=== PATIENT | female | born 1970 | race Caucasian/White ===

== ENCOUNTER 2016-12-12 05:28 | Emergency (ER) | payer OTHER ==
[~2016-12-12] VITALS: Ht 152.4 cm; Wt 88.9 kg
[~2016-12-12 05:28] MED LIST: ADIPEX-P37.5 M1 PO; AMBIEN 10MG10 MG PO; AMITIZA 8MCG8 MCG PO; AMITRIPTYLINE H25 M1 PO; ATARAX 10MG10 MG/TAB PO; ATIVAN 0.50.5 MG/TAB PO; B COMPLEX & B121 TAB PO; BACTRIM DS 8001 TAB PO; CALTRATE-600 W600 MG PO; CARAFATE S1 GM/10 ML PO; CELEBREX 1100 MG/CAP PO; CELEXA; CEPHALEXIN500 M1 PO; COLACE 100100 MG/CAP PO; CYMBALTA 60MG60 MG PO; DESYREL 100MG100 MG PO; DULCOLAX S10 MG/SUPP RC; ENULOSE10 GM/15 M PO; EXALGO16 MG PO; FIORICET 325 MG1 TA1 PO; FLEXERIL 1010 MG/TAB PO; FLEXERIL10 MG PO; GENTLE LAXATIVE5 MG PO; GINGER ROOT550 MG PO; IMITREX 25MG TA25 MG PO; IMITREX100 MG PO; INDERAL LA 80MG80 MG PO; IRON TABLETS325 MG PO; IRON325 MG PO; KEFLEX750 MG PO; KLONOPIN 0.5MG0.5 MG PO; KLONOPIN 1MG1 MG PO; LAMICTAL 100MG100 MG PO; LAMICTAL 25MG T25 MG PO; LEVAQUIN 5500 MG/TA1 PO; LEXAPRO20 MG PO; LIDOCAINE HC20 MG/M1 MM; LIDOCAINE HCL100 M1 MM; LIDOCAINE PO; LINZESS145CAP; LINZESS290CAP; LINZESS290CAP PO; LIPITOR20 MG PO; LORTAB 5/500 501 TAB PO; MIRALAX PA17 GM/Dose PO; MIRAPEX 1MG PO; MS CONTIN 115 MG/TAB PO; MS CONTIN 330 MG/TAB PO; MULTI VITAMINS1 TAB PO; MULTIPLE VITAMI1 CAP PO; MYRBETR25MG PO; NEXIUM 40MG40 MG PO; NEXIUM PO; NIFEREX-150 501 CA1 PO; NORCO 325 MG-51 TAB; NORCO 325 MG-51 TAB PO; NYSTATIN 5500 MU/TAB PO; NYSTATIN OR100 MU/ML PO; OYSTER CALCIUM500 M1 PO; PAMELOR 25MG25 MG PO; PERCOCET 325 MG1 TA2 PO; PHENERGAN 25 TA25 MG PO; PHENERGAN12.5 MG/SU RC; PHENERGAN25 MG RC; PREDNISONE20 MG PO; PREMARIN .3MG0.3 MG PO; PRILOTC PO; PRINZIDE 12.5 M1 TAB PO; PYRIDIUM200 M1 PO; Pyridium PO; REGLAN 10M10 MG/2 ML; REGLAN 10MG10 MG/TAB PO; REGLAN5 MG PO; REMERON30 MG PO; REQUIP 1MG T1 MG/TAB PO; RESTORIL30 MG PO; ROXICODONE 55 MG/TAB PO; ROXICODONE15 MG PO; SEA SOFT MIST 445 ML NS; SENNA8.6 MG PO; SEROQUEL 1100 MG/TAB PO; SEROQUEL 2525 MG/TAB; SEROQUEL 2525 MG/TAB PO; SEROQUEL50 MG PO; SINGULAIR 110 MG/TAB PO; TEARS NATURALE15 M1 OP; ULTRAM 50MG TAB50 MG PO; UNABLE; VESICARE 5MG5 MG PO; VRAYLAR1.5 MG PO; WELLBUTRIN SR150 M1 PO; ZESTRIL 10MG10 MG PO; ZOFRAN 4MG T4 MG/TAB PO; ZOFRAN ODT4 MG PO
[2016-12-12 05:30] VITALS: BP 111/77; TEMP 97.8
[2016-12-12] MEDS ORDERED: TYLENOL W/COD1 UDTAB PO (07:08)
[2016-12-12] MEDS ORDERED: FLEXERIL 1010 MG/TAB PO (07:08)
[2016-12-12] MEDS ORDERED: PREDNISONE20 MG PO (07:08)
[2016-12-12 07:23] VITALS: PULSE 67
== END 2016-12-12 07:21 | disposition home or self-care (01) ==
LOC: COL.ER 05:28
DX: S39.012A Strain of muscle, fascia and tendon of lower back, initial encounter (principal); I10 Essential (primary) hypertension; X50.0XXA Overexertion from strenuous movement or load, initial encounter; G43.909 Migraine, unspecified, not intractable, without status migrainosus
CPT/HCPCS: J3010; J7512

== ENCOUNTER → 2016-12-21 | Outpatient (CLI) | payer OTHER ==
[~2016-12-21] MED LIST changes: +NEURONTIN300 MG/CAP PO; +TYLENOL W/COD1 UDTAB PO
== END ==
LOC: MC.RAD 11:33
DX: Z12.31 Encounter for screening mammogram for malignant neoplasm of breast (principal)

== ENCOUNTER → 2017-01-06 | Outpatient (CLI) | payer OTHER | LOC: BHSO 14:01 | DX: F31.73 Bipolar disorder, in partial remission, most recent episode manic (principal) ==

== ENCOUNTER → 2017-03-10 | Outpatient (CLI) | payer OTHER | LOC: BHSO 13:39 | DX: F31.73 Bipolar disorder, in partial remission, most recent episode manic (principal) ==

== ENCOUNTER 2017-03-26 01:58 | Inpatient (IN) | payer OTHER ==
[~2017-03-26] VITALS: Ht 152.4 cm; Wt 93.1 kg
[~2017-03-26 01:58] MED LIST changes: -NEURONTIN300 MG/CAP PO
[2017-03-26 02:29] LABS: BASO % 0.3 % (0.0-2.0); EOS # 0.2 (0.0-0.7); EOS % 1.2 % (0-4.0); GRAN # 11.6 (1.4-6.5); GRAN % 77.8 % (42.2-75.2); HEMATOCRIT 36.3 % (37.0-47.0); HEMOGLOBIN 11.8 g/dl (12.5-16.0); LYMPH % 13.3 % (20.0-51.0); MEAN CELL VOLUME 81 fl (80.0-100.0); MEAN CORPUSCULAR HEMOGLOBIN 26 pg (27.0-31.0); MEAN CORPUSCULAR HGB CONC 33 g/dl (33.0-37.0); MEAN PLATELET VOLUME 10.9 fl (7.4-10.4); PLATELET COUNT 305 K/mm3 (130-400); RED BLOOD COUNT 4.48 M/mm3 (4.10-5.30); REDCELL DISTRIBUTION WIDTH-CV 13.9 % (11.5-14.5); WHITE BLOOD COUNT 14.9 K/mm3 (4.8-10.8)
[2017-03-26 02:39] LABS: ADJUSTED CALCIUM 9.1 mg/dL (8.4-10.2); ALBUMIN 4.3 gm/dL (3.5-5.0); BILIRUBIN,TOTAL 0.5 mg/dL (0.0-1.0); CALCIUM 9.3 mg/dL (8.4-10.2); CREATININE, serum 0.81 mg/dL (0.52-1.25); POTASSIUM 3.9 mmol/L (3.4-5.0); TOTAL PROTEIN 7.4 gm/dL (6.4-8.2)
[2017-03-26] MEDS ORDERED: NEURONTIN300 MG/CAP PO (03:43)
[2017-03-26 04:10] LABS: PH 5 (5-8); SQUAMOUS EPITHELIAL 0-2 /hpf; URINE APPEARANCE Clear; URINE BACTERIA None Seen /hpf; URINE BILIRUBIN Negative (NEGATIVE); URINE BLOOD Negative (NEGATIVE); URINE COLOR Yellow; URINE GLUCOSE Negative (NEGATIVE); URINE KETONE Negative (NEGATIVE); URINE RBC 0-2 /hpf; URINE UROBILINOGEN Negative (NEGATIVE); URINE WBC None Seen /hpf
[2017-03-26 04:11] VITALS: BP 113/65; PULSE 87; TEMP 98.8
[2017-03-26 10:55] VITALS: BP 121/71; PULSE 81; TEMP 98.1
[2017-03-26 11:44] LABS: BASO % 0.3 % (0.0-2.0); EOS # 0.2 (0.0-0.7); EOS % 1.7 % (0-4.0); GRAN # 6.1 (1.4-6.5); GRAN % 65.1 % (42.2-75.2); LYMPH # 2.1 (1.2-3.4); LYMPH % 22.3 % (20.0-51.0); MEAN CELL VOLUME 83 fl (80.0-100.0); MEAN CORPUSCULAR HGB CONC 32 g/dl (33.0-37.0); MEAN PLATELET VOLUME 11.1 fl (7.4-10.4); MONO % 10.3 % (1.7-9.3); PLATELET COUNT 279 K/mm3 (130-400); RED BLOOD COUNT 3.88 M/mm3 (4.10-5.30); REDCELL DISTRIBUTION WIDTH-CV 13.9 % (11.5-14.5); WHITE BLOOD COUNT 9.4 K/mm3 (4.8-10.8)
[2017-03-26 11:45] LABS: HEMOGLOBIN 10.3 g/dl (12.5-16.0); MEAN CORPUSCULAR HEMOGLOBIN 27 pg (27.0-31.0)
[2017-03-26 14:50] VITALS: BP 111/64; PULSE 79; TEMP 97.7
[2017-03-26 18:13] VITALS: BP 121/68; PULSE 75; TEMP 97.7
[2017-03-26 21:45] VITALS: BP 11/70; BP 111/70; PULSE 73; TEMP 97.7
[2017-03-27] VITALS (11 sets, daily range): BP systolic 121–143; BP diastolic 55–80; PULSE 61–93; TEMP 97–98.1
[2017-03-27 08:19] LABS: BASO % 0.2 % (0.0-2.0); EOS # 0.2 (0.0-0.7); EOS % 2.9 % (0-4.0); GRAN # 3.7 (1.4-6.5); GRAN % 56.7 % (42.2-75.2); HEMATOCRIT 32.8 % (37.0-47.0); HEMOGLOBIN 10.4 g/dl (12.5-16.0); LYMPH # 1.9 (1.2-3.4); LYMPH % 29.8 % (20.0-51.0); MEAN CELL VOLUME 83 fl (80.0-100.0); MEAN CORPUSCULAR HEMOGLOBIN 26 pg (27.0-31.0); MEAN CORPUSCULAR HGB CONC 32 g/dl (33.0-37.0); MEAN PLATELET VOLUME 11.8 fl (7.4-10.4); MONO # 0.7 (0.1-0.6); MONO % 10.1 % (1.7-9.3); PLATELET COUNT 187 K/mm3 (130-400); RED BLOOD COUNT 3.95 M/mm3 (4.10-5.30); REDCELL DISTRIBUTION WIDTH-CV 13.8 % (11.5-14.5); WHITE BLOOD COUNT 6.5 K/mm3 (4.8-10.8)
[2017-03-27 08:31] LABS: ALBUMIN 3.5 gm/dL (3.5-5.0); BILIRUBIN,TOTAL 0.7 mg/dL (0.0-1.0); CALCIUM 8.6 mg/dL (8.4-10.2); CREATININE, serum 0.52 mg/dL (0.52-1.25); POTASSIUM 3.7 mmol/L (3.4-5.0); TOTAL PROTEIN 6.3 gm/dL (6.4-8.2)
[2017-03-28 06:21] VITALS: BP 133/73; PULSE 69; TEMP 97.7
[2017-03-28 09:33] VITALS: BP 126/77; PULSE 73; TEMP 97.9
[2017-03-28 13:45] VITALS: BP 121/72; PULSE 65; TEMP 98.3
[2017-03-28 17:28] VITALS: BP 106/60; PULSE 65; TEMP 97.9
[2017-03-28 22:04] VITALS: BP 84/49; PULSE 63; TEMP 97.6
[2017-03-29 00:03] VITALS: BP 95/56; PULSE 65; TEMP 97.7
[2017-03-29 06:05] VITALS: BP 91/53; PULSE 60; TEMP 97.6
[2017-03-29 09:24] VITALS: BP 101/56; PULSE 72; TEMP 97.6
[2017-03-29] MEDS ORDERED: PERCOCET 325 MG1 TA2 PO (10:53)
[2017-03-29] MEDS ORDERED: COLACE 100100 MG/CAP PO (10:54)
[2017-03-29 13:24] VITALS: BP 104/62; PULSE 72; TEMP 97.7
== END 2017-03-29 16:30 | disposition home or self-care (01) | DRG 337 ==
LOC: COL.ER 01:58 → SURG 03:23
PROVIDERS: Emergency Medicine; Surgery
PROC: 0DNV4ZZ Release Mesentery, Percutaneous Endoscopic Approach (ICD-10-PCS; principal; 2017-03-27 09:00)
DX: K56.5 Intestinal adhesions [bands] with obstruction (postinfection) (principal); I10 Essential (primary) hypertension; Z98.84 Bariatric surgery status; E11.9 Type 2 diabetes mellitus without complications
CPT/HCPCS: A9284; J0330; J1100; J1170; J2270; J2405; J2704; J2710; J2765; J3010; J7030; Q9967

== ENCOUNTER → 2017-07-06 | Outpatient (CLI) | payer OTHER ==
[~2017-07-06] MED LIST changes: +NEURONTIN300 MG/CAP PO
== END ==
LOC: BHSO 14:00
DX: F31.73 Bipolar disorder, in partial remission, most recent episode manic (principal)

== ENCOUNTER → 2017-10-06 | Outpatient (CLI) | payer OTHER ==
[~2017-10-06] MED LIST changes: +GLUCOPHAGE1000 MG PO
== END ==
LOC: BHSO 14:01
DX: F31.73 Bipolar disorder, in partial remission, most recent episode manic (principal)
CPT/HCPCS: G0463

== ENCOUNTER 2017-10-08 22:28 | Inpatient (IN) | payer OTHER ==
[~2017-10-08] VITALS: Ht 152.4 cm; Wt 89.0 kg
[~2017-10-08 22:28] MED LIST changes: -GLUCOPHAGE1000 MG PO
[2017-10-08] MEDS ORDERED: GLUCOPHAGE1000 MG PO (22:50)
[2017-10-08] MEDS ORDERED: MIRALAX PA17 GM/Dose PO (22:51)
[2017-10-08 23:09] LABS: BASO # 0.1 (0.0-0.2); BASO % 0.5 % (0.0-2.0); EOS # 0.1 (0.0-0.7); EOS % 0.6 % (0-4.0); GRAN # 11.8 (1.4-6.5); GRAN % 88.9 % (42.2-75.2); HEMATOCRIT 40.5 % (37.0-47.0); HEMOGLOBIN 13.3 g/dl (12.5-16.0); LYMPH # 0.7 (1.2-3.4); MEAN CELL VOLUME 84 fl (80.0-100.0); MEAN CORPUSCULAR HEMOGLOBIN 27 pg (27.0-31.0); MEAN CORPUSCULAR HGB CONC 33 g/dl (33.0-37.0); MEAN PLATELET VOLUME 10.4 fl (7.4-10.4); MONO # 0.6 (0.1-0.6); MONO % 4.6 % (1.7-9.3); PLATELET COUNT 266 K/mm3 (130-400); RED BLOOD COUNT 4.85 M/mm3 (4.10-5.30); REDCELL DISTRIBUTION WIDTH-CV 13.7 % (11.5-14.5)
[2017-10-08 23:20] LABS: ALBUMIN 4.3 gm/dL (3.5-5.0); BILIRUBIN,TOTAL 0.4 mg/dL (0.0-1.0); CREATININE, serum 0.99 mg/dL (0.52-1.25); POTASSIUM 4.1 mmol/L (3.4-5.0); TOTAL PROTEIN 7.3 gm/dL (6.4-8.2)
[2017-10-09] VITALS (578 sets, daily range): BP systolic 94–118; BP diastolic 62–76; PULSE 99–135; TEMP 98–98.5; O2SAT 88–100
[2017-10-09 00:51] LABS: COLLECTION METHOD CLEAN CATCH
[2017-10-09 00:58] LABS: MUCOUS Present /lpf; PH 5 (5-8); SQUAMOUS EPITHELIAL 0-2 /hpf; URINE APPEARANCE Clear; URINE BACTERIA None Seen /hpf; URINE BILIRUBIN Negative (NEGATIVE); URINE BLOOD Negative (NEGATIVE); URINE COLOR Yellow; URINE GLUCOSE Negative (NEGATIVE); URINE KETONE Negative (NEGATIVE); URINE LEUKOCYTE ESTERASE Negative (NEGATIVE); URINE NITRATE Negative (NEGATIVE); URINE PROTEIN(semi-quant) Negative (NEGATIVE); URINE RBC 0-2 /hpf; URINE UROBILINOGEN Negative (NEGATIVE)
[2017-10-09 06:05] LABS: C-REACTIVE PROTEIN 3.5 mg/dL (0.0-0.9)
[2017-10-09 06:33] LABS: THYROID STIMULATING HORMONE 0.437 uIU/mL (0.465-4.680)
[2017-10-10] VITALS (482 sets, daily range): BP systolic 99–131; BP diastolic 67–93; PULSE 79–100; TEMP 97–98.8; O2SAT 84–100
[2017-10-10 06:15] LABS: MEAN CELL VOLUME 84 fl (80.0-100.0); MEAN CORPUSCULAR HGB CONC 33 g/dl (33.0-37.0); PLATELET COUNT 207 K/mm3 (130-400); REDCELL DISTRIBUTION WIDTH-CV 14.2 % (11.5-14.5)
[2017-10-10 06:21] LABS: HEMATOCRIT 33.6 % (37.0-47.0); MEAN CORPUSCULAR HEMOGLOBIN 28 pg (27.0-31.0)
[2017-10-10 06:33] LABS: CALCIUM 8.4 mg/dL (8.4-10.2); CREATININE, serum 0.6 mg/dL (0.52-1.25); POTASSIUM 3.2 mmol/L (3.4-5.0)
[2017-10-11] VITALS: BP 112/59; PULSE 79; TEMP 98.6
[2017-10-11 04:00] VITALS: BP 101/58; PULSE 81; TEMP 98.1
[2017-10-11 09:21] VITALS: BP 99/64; PULSE 94; TEMP 98.4
[2017-10-11 12:27] VITALS: BP 82/58; PULSE 91; TEMP 97.9
[2017-10-11 12:48] VITALS: BP 93/58
== END 2017-10-11 16:50 | disposition home or self-care (01) | DRG 390 ==
LOC: COL.ER 22:28 → SURG 10-09 00:36 → ICU 10-09 04:42 → SURG 10-09 08:35 → ICU 10-09 08:51 → SURG 10-10 15:00
PROVIDERS: Emergency Medicine; Surgery
DX: K56.600 Partial intestinal obstruction, unspecified as to cause (principal); A08.4 Viral intestinal infection, unspecified; Z98.84 Bariatric surgery status; I10 Essential (primary) hypertension; E11.9 Type 2 diabetes mellitus without complications; G89.29 Other chronic pain; E87.6 Hypokalemia; E86.9 Volume depletion, unspecified; E05.90 Thyrotoxicosis, unspecified without thyrotoxic crisis or storm
CPT/HCPCS: 99221; 99232-AI; C9113; J1170; J1650; J1815; J2405; J3480; J7030; J7050; J7070; J7120; Q9967

== ENCOUNTER → 2018-01-26 | Outpatient (CLI) | payer OTHER ==
[~2018-01-26] MED LIST changes: +GLUCOPHAGE1000 MG PO
== END ==
LOC: BHSO 13:56
DX: F33.41 Major depressive disorder, recurrent, in partial remission (principal)
CPT/HCPCS: G0463

== ENCOUNTER → 2018-03-06 | Outpatient (CLI) | payer OTHER | LOC: BHSO 13:42 | DX: F33.41 Major depressive disorder, recurrent, in partial remission (principal) | CPT/HCPCS: G0463 ==

== ENCOUNTER 2018-04-17 13:43 | Day surgery (SDC) | payer OTHER ==
[~2018-04-17] VITALS: Ht 152.4 cm; Wt 76.9 kg
[~2018-04-17 13:43] MED LIST changes: -LAMICTAL 25MG T25 MG PO; +LAMICTAL150 MG PO; +SEROQUEL300 MG PO
[2018-04-17] MEDS ORDERED: JANUVIA 100MG100 MG PO (14:06)
[2018-04-17] MEDS ORDERED: CYMBALTA 30MG30 MG PO (14:09)
[2018-04-17] MEDS ORDERED: CONTRAVE1 TER PO (14:09)
[2018-04-17] MEDS ORDERED: EPA FISH OIL1 SGL PO (14:10)
[2018-04-17] MEDS ORDERED: LIPITOR 10MG10 MG PO (14:10)
[2018-04-17] MEDS ORDERED: CALCIUM CARBON650 M2 PO (14:11)
[2018-04-17 14:29] VITALS: BP 127/96; PULSE 75; TEMP 97.5
[2018-04-17 15:30] VITALS: BP 122/81; PULSE 70; TEMP 97.9
[2018-04-17 15:45] VITALS: BP 135/80; PULSE 72
== END 2018-04-17 16:10 | disposition home or self-care (01) ==
LOC: SDCO 13:43
DX: R11.2 Nausea with vomiting, unspecified (principal); K31.89 Other diseases of stomach and duodenum; D64.9 Anemia, unspecified; F32.9 Major depressive disorder, single episode, unspecified; F41.9 Anxiety disorder, unspecified; K59.00 Constipation, unspecified; E11.9 Type 2 diabetes mellitus without complications; E78.00 Pure hypercholesterolemia, unspecified; I10 Essential (primary) hypertension; D50.9 Iron deficiency anemia, unspecified; Z90.710 Acquired absence of both cervix and uterus; Z90.49 Acquired absence of other specified parts of digestive tract
CPT/HCPCS: J2250; J2405; J3010; J7030

== ENCOUNTER → 2018-05-16 | Outpatient (CLI) | payer OTHER ==
[~2018-05-16] MED LIST changes: +CALCIUM CARBON650 M2 PO; +CONTRAVE1 TER PO; +CYMBALTA 30MG30 MG PO; +EPA FISH OIL1 SGL PO; +JANUVIA 100MG100 MG PO; +LIPITOR 10MG10 MG PO
== END ==
LOC: MC.RAD 05-15 14:40
DX: Z12.31 Encounter for screening mammogram for malignant neoplasm of breast (principal)

== ENCOUNTER → 2018-06-05 | Outpatient (CLI) | payer OTHER | LOC: BHSO 12:58 | DX: F41.1 Generalized anxiety disorder (principal) | CPT/HCPCS: G0463 ==

== ENCOUNTER → 2018-10-23 | Outpatient (CLI) | payer OTHER | LOC: BHSO 14:25 | DX: F33.0 Major depressive disorder, recurrent, mild (principal) | CPT/HCPCS: G0463 ==

== ENCOUNTER 2018-11-05 23:17 | Emergency (ER) | payer OTHER ==
[~2018-11-05] VITALS: Ht 149.9 cm; Wt 66.4 kg
[2018-11-05 23:24] VITALS: TEMP 97.9
[2018-11-05 23:46] LABS: BASO # 0.1 (0.0-0.2); BASO % 0.7 % (0.0-2.0); EOS # 0.3 (0.0-0.7); EOS % 3.8 % (0-4.0); GRAN # 3.2 (1.4-6.5); HEMOGLOBIN 11.5 g/dl (12.5-16.0); LYMPH # 3.9 (1.2-3.4); MEAN CELL VOLUME 87 fl (80.0-100.0); MEAN CORPUSCULAR HEMOGLOBIN 28 pg (27.0-31.0); MEAN CORPUSCULAR HGB CONC 32 g/dl (33.0-37.0); MEAN PLATELET VOLUME 10.2 fl (7.4-10.4); MONO # 0.7 (0.1-0.6); MONO % 8.4 % (1.7-9.3); PLATELET COUNT 291 K/mm3 (130-400); RED BLOOD COUNT 4.08 M/mm3 (4.10-5.30); REDCELL DISTRIBUTION WIDTH-CV 13.4 % (11.5-14.5)
[2018-11-05 23:50] LABS: HEMATOCRIT 35.5 % (37.0-47.0)
[2018-11-05] MEDS ORDERED: DESYREL 100MG100 MG PO (23:52)
[2018-11-06] LABS: ALANINE AMINOTRANSFERASE 26 U/L (9-52); ALKALINE PHOSPHATASE 73 U/L (50-136); ANION GAP 6 mmol/L (7-16); AST,SGOT 35 U/L (15-37); BILIRUBIN,TOTAL 0.2 mg/dL (0.0-1.0); BLOOD UREA NITROGEN 14 mg/dL (7-17); CALCIUM 9.2 mg/dL (8.4-10.2); CARBON DIOXIDE 27 mmol/L (22-30); CHLORIDE 105 mmol/L (98-107); CREATININE, serum 0.83 mg/dL (0.52-1.25); LIPASE 167 U/L (23-300); POTASSIUM 3.7 mmol/L (3.4-5.0); SODIUM 139 mmol/L (137-145); TOTAL PROTEIN 7.1 gm/dL (6.4-8.2)
[2018-11-06 00:06] LABS: PROTHROMBIN TIME 10.8 SECONDS (9.7-12.8)
[2018-11-06 00:07] LABS: GLUCOSE 36 mg/dL (74-106)
[2018-11-06 00:11] LABS: TROPONIN-I < 0.012 ng/mL (0.000-0.035)
[2018-11-06 00:16] LABS: D-DIMER < 200.00 ng/mLDDu (200-230)
[2018-11-06 00:56] LABS: CALCIUM 8.5 mg/dL (8.4-10.2); CREATININE, serum 0.76 mg/dL (0.52-1.25); POTASSIUM 3.9 mmol/L (3.4-5.0)
[2018-11-06 01:55] LABS: COLLECTION METHOD CLEAN CATCH
[2018-11-06 02:07] LABS: PH 6 (5-8); SQUAMOUS EPITHELIAL 0-2 /hpf; URINE APPEARANCE Clear; URINE BACTERIA None Seen /hpf; URINE BILIRUBIN Negative (NEGATIVE); URINE BLOOD Negative (NEGATIVE); URINE COLOR Straw; URINE GLUCOSE 1+ (NEGATIVE); URINE KETONE Negative (NEGATIVE); URINE LEUKOCYTE ESTERASE Negative (NEGATIVE); URINE NITRATE Negative (NEGATIVE); URINE PROTEIN(semi-quant) Negative (NEGATIVE); URINE RBC None Seen /hpf; URINE UROBILINOGEN Negative (NEGATIVE)
[2018-11-06 02:50] LABS: ANION GAP 4 mmol/L (7-16); BLOOD UREA NITROGEN 13 mg/dL (7-17); CALCIUM 8.6 mg/dL (8.4-10.2); CARBON DIOXIDE 28 mmol/L (22-30); CHLORIDE 109 mmol/L (98-107); CREATININE, serum 0.76 mg/dL (0.52-1.25); GLUCOSE 118 mg/dL (74-106); POTASSIUM 4.4 mmol/L (3.4-5.0); SODIUM 140 mmol/L (137-145)
[2018-11-06 03:02] LABS: TROPONIN-I 3 HR POST INITIAL < 0.012 ng/mL (0.000-0.034)
[2018-11-06 03:09] VITALS: BP 98/72; PULSE 67
== END 2018-11-06 03:20 | disposition home or self-care (01) ==
LOC: COL.ER 23:17
PROVIDERS: Emergency Medicine
DX: R07.89 Other chest pain (principal); I10 Essential (primary) hypertension; Z98.890 Other specified postprocedural states
CPT/HCPCS: J1170; J1630; J2270; J2405; J7030

== ENCOUNTER 2018-11-29 15:02 | Emergency (ER) | payer OTHER ==
[~2018-11-29] VITALS: Ht 149.9 cm; Wt 68.2 kg
[2018-11-29 15:05] VITALS: BP 144/70; PULSE 98; TEMP 97.9
[2018-11-29] MEDS ORDERED: ACIPHEX20 MG PO (15:19)
== END 2018-11-29 16:00 | disposition home or self-care (01) ==
LOC: COL.ER 15:02
DX: M25.562 Pain in left knee (principal); F32.9 Major depressive disorder, single episode, unspecified; Z98.84 Bariatric surgery status; Z90.710 Acquired absence of both cervix and uterus
CPT/HCPCS: L1846

== ENCOUNTER → 2018-12-20 | Outpatient (CLI) | payer OTHER ==
[~2018-12-20] MED LIST changes: +ACIPHEX20 MG PO
== END ==
LOC: BHSO 13:40
DX: F33.42 Major depressive disorder, recurrent, in full remission (principal)
CPT/HCPCS: G0463

== ENCOUNTER → 2019-03-15 | Outpatient (CLI) | payer OTHER | LOC: BHSO 13:52 | DX: F33.41 Major depressive disorder, recurrent, in partial remission (principal) | CPT/HCPCS: G0463 ==

== ENCOUNTER → 2019-05-09 | Outpatient (CLI) | payer OTHER | LOC: BHSO 09:18 | DX: F33.41 Major depressive disorder, recurrent, in partial remission (principal) | CPT/HCPCS: G0463 ==

== ENCOUNTER 2019-05-16 14:21 | Emergency (ER) | payer OTHER ==
[~2019-05-16] VITALS: Ht 149.9 cm; Wt 68.2 kg
[2019-05-16 14:35] VITALS: TEMP 98
[2019-05-16 16:41] LABS: COLLECTION METHOD CLEAN CATCH
[2019-05-16 16:51] LABS: BASO % 0.5 % (0.0-2.0); EOS # 0.2 (0.0-0.7); EOS % 2.9 % (0-4.0); GRAN # 4.1 (1.4-6.5); GRAN % 49.8 % (42.2-75.2); HEMOGLOBIN 11.7 g/dl (12.5-16.0); LYMPH # 3.1 (1.2-3.4); MEAN CELL VOLUME 85 fl (80.0-100.0); MEAN CORPUSCULAR HEMOGLOBIN 28 pg (27.0-31.0); MEAN CORPUSCULAR HGB CONC 33 g/dl (33.0-37.0); MEAN PLATELET VOLUME 10.5 fl (7.4-10.4); MONO # 0.7 (0.1-0.6); MONO % 8.4 % (1.7-9.3); PLATELET COUNT 313 K/mm3 (130-400); RED BLOOD COUNT 4.23 M/mm3 (4.10-5.30); REDCELL DISTRIBUTION WIDTH-CV 13.6 % (11.5-14.5)
[2019-05-16 16:57] LABS: ALANINE AMINOTRANSFERASE 24 U/L (9-52); ALBUMIN 4.3 gm/dL (3.5-5.0); ALKALINE PHOSPHATASE 113 U/L (50-136); AMORPHOUS CRYSTAL Present /uL; ANION GAP 7 mmol/L (7-16); AST,SGOT 32 U/L (15-37); BILIRUBIN,TOTAL 0.5 mg/dL (0.0-1.0); BLOOD UREA NITROGEN 13 mg/dL (7-17); CALCIUM 9.4 mg/dL (8.4-10.2); CARBON DIOXIDE 27 mmol/L (22-30); CHLORIDE 104 mmol/L (98-107); CREATININE, serum 0.78 (0.52-1.25); GLUCOSE 102 mg/dL (74-106); LIPASE 131 U/L (23-300); MUCOUS Present /lpf; PH 7 (5-8); POTASSIUM 4.1 mmol/L (3.4-5.0); SODIUM 139 mmol/L (137-145); SQUAMOUS EPITHELIAL 0-2 /hpf; TOTAL PROTEIN 7.5 gm/dL (6.4-8.2); URINE APPEARANCE Cloudy; URINE BACTERIA None Seen /hpf; URINE BILIRUBIN Negative (NEGATIVE); URINE BLOOD Negative (NEGATIVE); URINE COLOR Yellow; URINE GLUCOSE Negative (NEGATIVE); URINE KETONE Negative (NEGATIVE); URINE LEUKOCYTE ESTERASE Negative (NEGATIVE); URINE NITRATE Negative (NEGATIVE); URINE PROTEIN(semi-quant) Negative (NEGATIVE)
[2019-05-16 17:06] LABS: HEMATOCRIT 35.8 % (37.0-47.0)
[2019-05-16 17:07] LABS: C-REACTIVE PROTEIN < 0.5 mg/dL (0.0-0.9)
[2019-05-16] MEDS ORDERED: OSCAL 500 TAB500 MG PO (17:58)
[2019-05-16] MEDS ORDERED: CYMBALTA 60MG60 MG PO (17:59)
[2019-05-16] MEDS ORDERED: TOPAMAX50 MG PO (18:01)
[2019-05-16] MEDS ORDERED: DESYREL 100MG100 MG PO (18:02)
[2019-05-16] MEDS ORDERED: ACIPHEX20 MG PO (18:03)
[2019-05-16] MEDS ORDERED: ZOFRAN 4MG T4 MG/TAB PO (18:06)
[2019-05-16] MEDS ORDERED: LAMICTAL200 MG PO (18:07)
[2019-05-16] MEDS ORDERED: NEURONTIN300 MG/CAP PO (18:08)
[2019-05-16 18:50] VITALS: BP 107/76; PULSE 60
== END 2019-05-16 18:55 | disposition home or self-care (01) ==
LOC: COL.ER 14:21
PROVIDERS: Emergency Medicine
DX: K59.00 Constipation, unspecified (principal); E11.9 Type 2 diabetes mellitus without complications; F32.9 Major depressive disorder, single episode, unspecified; Z90.89 Acquired absence of other organs; Z98.84 Bariatric surgery status; Z79.84 Long term (current) use of oral hypoglycemic drugs
CPT/HCPCS: J2405; J3010; J7030; Q9967

== ENCOUNTER 2019-08-03 18:00 | Emergency (ER) | payer OTHER ==
[~2019-08-03] VITALS: Ht 149.9 cm; Wt 68.2 kg
[~2019-08-03 18:00] MED LIST changes: +LAMICTAL200 MG PO; +OSCAL 500 TAB500 MG PO; +TOPAMAX50 MG PO
[2019-08-03 18:20] VITALS: BP 135/72; TEMP 98
[2019-08-03] MEDS ORDERED: PERCOCET 325 MG1 TA2 PO ×2 (20:24→20:57)
[2019-08-03] MEDS ORDERED: VOLTAREN GEL 1%1 TU TP (20:24)
[2019-08-03 21:06] VITALS: PULSE 59
== END 2019-08-03 21:47 | disposition home or self-care (01) ==
LOC: COL.ER 18:00
DX: S93.401A Sprain of unspecified ligament of right ankle, initial encounter (principal); E11.9 Type 2 diabetes mellitus without complications; I10 Essential (primary) hypertension; X50.1XXA Overexertion from prolonged static or awkward postures, initial encounter; Z98.84 Bariatric surgery status

== ENCOUNTER → 2019-08-07 | Outpatient (CLI) | payer OTHER ==
[~2019-08-07] MED LIST changes: +VOLTAREN GEL 1%1 TU TP
== END ==
LOC: BHSO 14:42
DX: F33.41 Major depressive disorder, recurrent, in partial remission (principal)
CPT/HCPCS: G0463

== ENCOUNTER → 2019-09-17 | Outpatient (CLI) | payer OTHER | LOC: BHSO 14:27 | DX: F33.42 Major depressive disorder, recurrent, in full remission (principal) | CPT/HCPCS: G0463 ==

== ENCOUNTER → 2020-03-27 | Outpatient (CLI) | payer OTHER | LOC: BHSO 14:49 | DX: F33.41 Major depressive disorder, recurrent, in partial remission (principal) | CPT/HCPCS: G0463 ==

== ENCOUNTER → 2020-06-16 | Outpatient (CLI) | payer OTHER | LOC: COL.RAD 06-09 11:30 | DX: Z01.812 Encounter for preprocedural laboratory examination (principal); K59.00 Constipation, unspecified; R10.84 Generalized abdominal pain; R14.0 Abdominal distension (gaseous); Z90.49 Acquired absence of other specified parts of digestive tract; Z95.828 Presence of other vascular implants and grafts; Z98.1 Arthrodesis status; Z98.84 Bariatric surgery status | CPT/HCPCS: Q9967 ==

== ENCOUNTER 2020-08-19 20:58 | Emergency (ER) | payer OTHER ==
[~2020-08-19] VITALS: Ht 149.9 cm; Wt 79.5 kg
[2020-08-19 22:43] LABS: BASO % 0.5 % (0.0-2.0); EOS # 0.1 (0.0-0.7); EOS % 1.1 % (0-4.0); GRAN # 3.5 (1.4-6.5); HEMOGLOBIN 11.2 g/dl (12.5-16.0); LYMPH # 1.2 (1.2-3.4); LYMPH % 21.1 % (20.0-51.0); MEAN CELL VOLUME 84 fl (80.0-100.0); MEAN CORPUSCULAR HEMOGLOBIN 27 pg (27.0-31.0); MEAN CORPUSCULAR HGB CONC 32 g/dl (33.0-37.0); MEAN PLATELET VOLUME 10.5 fl (7.4-10.4); MONO # 0.8 (0.1-0.6); MONO % 13.9 % (1.7-9.3); PLATELET COUNT 244 K/mm3 (130-400); RED BLOOD COUNT 4.12 M/mm3 (4.10-5.30); REDCELL DISTRIBUTION WIDTH-CV 14.6 % (11.5-14.5)
[2020-08-19 22:44] LABS: HEMATOCRIT 34.6 % (37.0-47.0)
[2020-08-19 22:58] LABS: ALANINE AMINOTRANSFERASE 33 U/L (4-34); ALKALINE PHOSPHATASE 102 U/L (50-136); ANION GAP 9 mmol/L (7-16); AST,SGOT 48 U/L (15-37); BILIRUBIN,TOTAL 0.6 mg/dL (0.0-1.0); BLOOD UREA NITROGEN 15 mg/dL (7-17); CALCIUM 9.2 mg/dL (8.4-10.2); CARBON DIOXIDE 29 mmol/L (22-30); CHLORIDE 96 mmol/L (98-107); CREATININE, serum 0.77 (0.52-1.25); GLUCOSE 134 mg/dL (74-106); POTASSIUM 3.7 mmol/L (3.4-5.0); SODIUM 134 mmol/L (137-145)
[2020-08-19 23:15] LABS: C-REACTIVE PROTEIN < 0.5 mg/dL (0.0-0.9); TROPONIN-I < 0.012 ng/mL (0.000-0.035)
[2020-08-20 00:12] VITALS: BP 141/90; PULSE 75; TEMP 98.3
== END 2020-08-20 00:18 | disposition home or self-care (01) ==
LOC: COL.ER 20:58
PROVIDERS: Nurse Practitioner
DX: U07.1 COVID-19 (principal); Z88.6 Allergy status to analgesic agent
CPT/HCPCS: J1885; J2405; J7030

== ENCOUNTER 2020-09-02 14:02 | Emergency (ER) | payer OTHER ==
[~2020-09-02] VITALS: Ht 149.9 cm; Wt 80.0 kg
[2020-09-02 14:18] VITALS: TEMP 97.8
[2020-09-02] MEDS ORDERED: ONE-A-DAY ESSE1 EACH PO (14:40)
[2020-09-02] MEDS ORDERED: REVIA 50MG TABL50 MG PO (14:41)
[2020-09-02] MEDS ORDERED: AMITIZA 8MCG8 MCG PO (14:44)
[2020-09-02] MEDS ORDERED: WELLBUTRIN SR150 M1 PO (14:44)
[2020-09-02] MEDS ORDERED: LEVSIN0.125 M1 PO (14:45)
[2020-09-02] MEDS ORDERED: MAGCITRATE (14:45)
[2020-09-02] MEDS ORDERED: IMITREX 5MGNAS NS (14:46)
[2020-09-02] MEDS ORDERED: TYLENOL 500MG500 MG PO (14:46)
[2020-09-02] MEDS ORDERED: DULCOLAX TAB5 MG PO (14:46)
[2020-09-02 14:51] LABS: BASO % 0.4 % (0.0-2.0); EOS % 0.6 % (0-4.0); GRAN # 3.5 (1.4-6.5); GRAN % 49.8 % (42.2-75.2); HEMOGLOBIN 11.9 g/dl (12.5-16.0); LYMPH # 2.9 (1.2-3.4); LYMPH % 41.6 % (20.0-51.0); MEAN CELL VOLUME 83 fl (80.0-100.0); MEAN CORPUSCULAR HEMOGLOBIN 28 pg (27.0-31.0); MEAN CORPUSCULAR HGB CONC 33 g/dl (33.0-37.0); MEAN PLATELET VOLUME 10.1 fl (7.4-10.4); MONO # 0.5 (0.1-0.6); MONO % 7.5 % (1.7-9.3); PLATELET COUNT 347 K/mm3 (130-400); RED BLOOD COUNT 4.32 M/mm3 (4.10-5.30); REDCELL DISTRIBUTION WIDTH-CV 13.6 % (11.5-14.5)
[2020-09-02 14:57] LABS: HEMATOCRIT 35.8 % (37.0-47.0)
[2020-09-02] MEDS ORDERED: MEDROL 4MG DOSPA4 MG PO (15:52)
[2020-09-02 16:15] VITALS: BP 139/88; PULSE 67
== END 2020-09-02 16:14 | disposition home or self-care (01) ==
LOC: COL.ER 14:02
PROVIDERS: Physician Assistant
DX: U07.1 COVID-19 (principal); E78.5 Hyperlipidemia, unspecified; Z98.84 Bariatric surgery status; Z90.710 Acquired absence of both cervix and uterus; Z88.6 Allergy status to analgesic agent; Z79.84 Long term (current) use of oral hypoglycemic drugs
CPT/HCPCS: J1885; J2405

== ENCOUNTER 2020-09-20 23:32 | Inpatient (IN) | payer OTHER ==
[~2020-09-20] VITALS: Ht 149.9 cm; Wt 84.1 kg
[~2020-09-20 23:32] MED LIST changes: +DULCOLAX TAB5 MG PO; +IMITREX 5MGNAS NS; +LEVSIN0.125 M1 PO; +MAGCITRATE; +MEDROL 4MG DOSPA4 MG PO; +ONE-A-DAY ESSE1 EACH PO; +REVIA 50MG TABL50 MG PO; +TYLENOL 500MG500 MG PO
[2020-09-21 00:48] LABS: BASO % 0.5 % (0.0-2.0); EOS # 0.2 (0.0-0.7); EOS % 2.8 % (0-4.0); GRAN # 4.2 (1.4-6.5); HEMATOCRIT 37.1 % (37.0-47.0); HEMOGLOBIN 12.2 g/dl (12.5-16.0); LYMPH # 3.1 (1.2-3.4); LYMPH % 36.6 % (20.0-51.0); MEAN CELL VOLUME 88 fl (80.0-100.0); MEAN CORPUSCULAR HEMOGLOBIN 29 pg (27.0-31.0); MEAN CORPUSCULAR HGB CONC 33 g/dl (33.0-37.0); MEAN PLATELET VOLUME 10.2 fl (7.4-10.4); MONO # 0.8 (0.1-0.6); PLATELET COUNT 271 K/mm3 (130-400); RED BLOOD COUNT 4.21 M/mm3 (4.10-5.30); REDCELL DISTRIBUTION WIDTH-CV 14.5 % (11.5-14.5)
[2020-09-21 00:57] LABS: INR 0.8 (0.8-3.0); PROTHROMBIN TIME 9.4 SECONDS (9.7-12.8)
[2020-09-21 01:00] LABS: PARTIAL THROMBOPLASTIN TIME 30.4 SECONDS (26.0-37.0)
[2020-09-21 01:16] LABS: ALANINE AMINOTRANSFERASE 22 U/L (4-34); ALBUMIN 4.4 gm/dL (3.5-5.0); ALKALINE PHOSPHATASE 101 U/L (50-136); ANION GAP 11 mmol/L (7-16); AST,SGOT 29 U/L (15-37); BILIRUBIN,TOTAL 0.3 mg/dL (0.0-1.0); BLOOD UREA NITROGEN 8 mg/dL (7-17); CALCIUM 9.2 mg/dL (8.4-10.2); CARBON DIOXIDE 25 mmol/L (22-30); CHLORIDE 102 mmol/L (98-107); CREATININE, serum 0.58 (0.52-1.25); GLUCOSE 114 mg/dL (74-106); LIPASE 155 U/L (23-300); POTASSIUM 4.4 mmol/L (3.4-5.0); SODIUM 139 mmol/L (137-145); TOTAL PROTEIN 7.6 gm/dL (6.4-8.2)
[2020-09-21 01:33] LABS: TROPONIN-I < 0.012 ng/mL (0.000-0.035)
[2020-09-21] MEDS ORDERED: AMITIZA24 MCG PO (01:54)
[2020-09-21] MEDS ORDERED: AIMOVIG AU70 MG/1 ML SQ (02:05)
--- NOTE | 2020-09-21 04:15 | NUR ---
Admitted to medical floor from ER- [facility], states has not had a BM in 7 days-- Abd firm, hypoactive bowel sounds, NPO, states abd pain 8/10 and has nausea-- will give Morphine and Zofran as ordered. VSS, IV fluids of NS at 100cc/hr
[2020-09-21 04:51] VITALS: BP 143/78; PULSE 82; TEMP 97.8
[2020-09-21 06:23] LABS: BASO % 0.4 % (0.0-2.0); EOS # 0.2 (0.0-0.7); EOS % 3.2 % (0-4.0); GRAN # 3.4 (1.4-6.5); GRAN % 46.8 % (42.2-75.2); HEMOGLOBIN 11.1 g/dl (12.5-16.0); LYMPH # 2.9 (1.2-3.4); LYMPH % 39.9 % (20.0-51.0); MEAN CELL VOLUME 88 fl (80.0-100.0); MEAN CORPUSCULAR HEMOGLOBIN 28 pg (27.0-31.0); MEAN CORPUSCULAR HGB CONC 32 g/dl (33.0-37.0); MEAN PLATELET VOLUME 10.5 fl (7.4-10.4); MONO # 0.7 (0.1-0.6); MONO % 9.6 % (1.7-9.3); PLATELET COUNT 256 K/mm3 (130-400); REDCELL DISTRIBUTION WIDTH-CV 14.6 % (11.5-14.5)
[2020-09-21 06:36] LABS: ALANINE AMINOTRANSFERASE 20 U/L (4-34); ALBUMIN 3.9 gm/dL (3.5-5.0); ALKALINE PHOSPHATASE 95 U/L (50-136); ANION GAP 7 mmol/L (7-16); AST,SGOT 28 U/L (15-37); BILIRUBIN,TOTAL 0.4 mg/dL (0.0-1.0); BLOOD UREA NITROGEN 7 mg/dL (7-17); CALCIUM 8.5 mg/dL (8.4-10.2); CARBON DIOXIDE 29 mmol/L (22-30); CHLORIDE 101 mmol/L (98-107); CREATININE, serum 0.58 (0.52-1.25); GLUCOSE 126 mg/dL (74-106); MAGNESIUM 2.3 mg/dL (1.6-2.3); POTASSIUM 4.2 mmol/L (3.4-5.0); SODIUM 136 mmol/L (137-145); TOTAL PROTEIN 6.8 gm/dL (6.4-8.2)
[2020-09-21] MEDS ORDERED: B 12 PO (06:46)
[2020-09-21] MEDS ORDERED: CALCIUM CARBON650 M2 PO (06:47)
[2020-09-21] MEDS ORDERED: VITAMIN D31000 I1 PO (06:50)
[2020-09-21 08:00] VITALS: BP 126/71; PULSE 86; TEMP 97.9
--- NOTE | 2020-09-21 08:09 | NUR ---
PATIENT AWAKE IN BED. COMPLAINS OF ABDOMEN PAIN. DOES REPORTS SOME SHORTNESS OF BREATH WHILE RESTING BUT SHE FEELS THAT IS BECAUSE HER BELLY IS SO FULL AND DISTENDED. PRN MORPHINE 2MG GIVEN AT THIS TIME IVP. SHE IS ALSO NAUSEATED BUT IT IS TO EARLY FOR MEDICATION. WILL TALK WITH DOCTOR WHEN THEY ARRIVE TODAY FOR ROUNDS.
[2020-09-21 08:51] VITALS: BP 149/83; PULSE 77
--- NOTE | 2020-09-21 08:52 | NUR ---
PATIENT CALLS OUT COMPLAINING OF CHEST PAIN. VITALS OBTAINED. TELE WNL. WILL NOTIFY DOCTOR OF THIS
--- NOTE | 2020-09-21 09:03 | NUR ---
NOTIFIED NEW ORDERS RECEIVED
[2020-09-21 10:08] LABS: TROPONIN-I < 0.012 ng/mL (0.000-0.035)
--- NOTE | 2020-09-21 10:39 | NUR ---
SW met with patient to conduct intake assessment. Patient lives at home in [place] with her Darrick (P# [phone]). Patient reports no DPOA, there is no DPOA on file, and patient is not interested in filling out the paperwork at this time. Patient is independent at home and requires no DME. PCP is Dr. Hoang. Patient uses [facility] for medications; however [facility] is her preference for medications if discharged on a weekend. Patient plans to go home with her at discharge. Darrick will transport her home. Patient denies questions or concerns at this time. Patient also has a daughter Flores Weber (P# [phone]). Social work will continue to follow.
[2020-09-21 11:08] VITALS: BP 141/82; PULSE 78; TEMP 97.5
--- NOTE | 2020-09-21 11:15 | NUR ---
PRN MORPHINE 2MG AND ZOFRAN GIVEN AT THIS TIME FOR NAUSEA AND PAIN
--- NOTE | 2020-09-21 11:50 | NUR ---
PATIENT REPORTS THAT CHEST PAIN HAS RESOLVED BUT STILL HAVING ABDOMEN PAIN. PRN DUCOLAX SUPPOSITORY GIVEN, SHE WANTED TO INSERT HERSELF. LUBE AND SUPPOSITORY GIVEN TO HER.
--- NOTE | 2020-09-21 13:36 | NUR ---
PATIENT COMPLAINS OF A HEADACHE RELATED TO THE MORPHINE. WILL NOTIFY DOCTOR
[2020-09-21 15:02] VITALS: BP 116/75; PULSE 83; TEMP 97.5
[2020-09-21] MEDS ORDERED: [UNRECOGNIZED DRUG - OTHER] SL (15:44)
--- NOTE | 2020-09-21 17:52 | NUR ---
PATIENT SLEEPING IN BED. NS AT 75ML/HR PER NEW ORDERS
[2020-09-21 20:05] VITALS: BP 151/124; PULSE 86; TEMP 97.6
--- NOTE | 2020-09-22 00:23 | NUR ---
Patient alert and oriented. Patient c/o abdominal pain 8/10 and headache. Patient denies nausea or voimtting. Denies SOB or dyspnea while at rest. Patient is currently on NPO. Abdomen firm and distended. Patient had suppository at day time but BM yet. Called ANIKET Sanchez and received order for Fleet enema. PRN morphine given at 20:30 pm. All sheduled meds given at this time. PRN enema given at 23:19 pm. Patient states that she will insert enema herself. Call light within reach. Will continue to monitor.
[2020-09-22 01:25] VITALS: BP 128/83; PULSE 79; TEMP 98.3
--- NOTE | 2020-09-22 02:51 | NUR ---
Patient had small BM around 1am. A few pieces of hard stool noted in the toilet. Still complaining of pain to her abdomen and feeling nauseous. PRN Toraldol given at 01:16 am and Zofran given at 01:15 am. Call light within reach. Will continue to monitor.
[2020-09-22 04:01] VITALS: BP 115/70; PULSE 83; TEMP 97.8
[2020-09-22 06:20] LABS: BASO % 0.7 % (0.0-2.0); EOS # 0.2 (0.0-0.7); EOS % 3.8 % (0-4.0); GRAN % 46.2 % (42.2-75.2); HEMOGLOBIN 10.4 g/dl (12.5-16.0); LYMPH # 1.7 (1.2-3.4); LYMPH % 37.3 % (20.0-51.0); MEAN CELL VOLUME 89 fl (80.0-100.0); MEAN CORPUSCULAR HEMOGLOBIN 28 pg (27.0-31.0); MEAN CORPUSCULAR HGB CONC 31 g/dl (33.0-37.0); MEAN PLATELET VOLUME 10.7 fl (7.4-10.4); MONO # 0.5 (0.1-0.6); MONO % 11.8 % (1.7-9.3); PLATELET COUNT 194 K/mm3 (130-400); RED BLOOD COUNT 3.73 M/mm3 (4.10-5.30); REDCELL DISTRIBUTION WIDTH-CV 14.4 % (11.5-14.5)
--- NOTE | 2020-09-22 06:27 | NUR ---
Patient states her stomach pain is feeling a little better after had small BM last night. But still have stomach pain 02/05. PRN Morphine given at 05:58 am. PRN Benadryl given at this time per request. Call light within reach. Patient denies further needs at this time.
[2020-09-22 06:28] LABS: CALCIUM 8.3 mg/dL (8.4-10.2); CREATININE, serum 0.66 (0.52-1.25); POTASSIUM 3.8 mmol/L (3.4-5.0)
[2020-09-22 06:42] LABS: HEMATOCRIT 33.2 % (37.0-47.0)
--- NOTE | 2020-09-22 07:17 | NUR ---
Notified nurse, Patty RN of PT not being on telemetry.
[2020-09-22 07:46] VITALS: BP 121/79; PULSE 91; TEMP 98.1
--- NOTE | 2020-09-22 08:10 | NUR ---
PT DENIES NAUSEA AT THIS TIME, REPORTS 2 SMALL HARD BM DURING NIGHT AFTER ENEMA, ABD DOES FEEL SOFT BUT PT REPORTS NOT PASSING GAS, MORPHINE REQUESTED, VITALS REVIEWED, NO OTHER NEEDS AT THIS TIME
[2020-09-22 11:36] VITALS: BP 137/77; PULSE 92; TEMP 97.9
[2020-09-22 15:39] VITALS: BP 133/77; PULSE 86; TEMP 98.1
--- NOTE | 2020-09-22 17:26 | NUR ---
PT C/O PAIN AND CONSTIPATION, OCCASIONAL NAUSEA, NO VOMITING, PT C/O LEG CRAMPING RECENTLY, PT HAD SHOWER AND SUPPOSITORY, NO BM, NPO DIET MAINTAINED, NO OTHER NEEDS.
[2020-09-22 20:33] VITALS: BP 127/77; PULSE 76; TEMP 97.7
--- NOTE | 2020-09-22 22:46 | NUR ---
Patient resting in bed with eyes closed upon the the room. Patient opens eyes with calling her name. Patient c/o abdominal pain 03/07. Abdomen soft and distended. Patient reports not passing gas and no BM today. Denies N/V at this time. PRN Morphine and Benadryl given per patient request. NS running at 75ml/hr via right AC. Right AC IV site has no s/s of complications. Call light within reach. Patient denies further needs at this time.
[2020-09-23 00:19] VITALS: BP 136/73; PULSE 71; TEMP 97.2
--- NOTE | 2020-09-23 03:27 | NUR ---
Patient is currently NPO. BS was 76 last night. Concerning BS will go below 70 this morning, called hospitalist ANIKET Garcia at [phone] for this concern. New order received to give PRN Dextrose IV for BS <40. Will monitor BS this morning.
[2020-09-23 03:43] VITALS: BP 143/81; PULSE 78; TEMP 97.6
--- NOTE | 2020-09-23 05:51 | NUR ---
PRN Morphine and Toradol given throughout the night for c/o pain to abdomen. No c/o nausea/vomiting. 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 Patient c/o cramping to her legs. Encouraged patient to stretch her leg and ROM exercises. Call light within reach. Patient denies further needs at this time.
[2020-09-23 07:34] VITALS: BP 128/69; PULSE 78; TEMP 98
--- NOTE | 2020-09-23 08:36 | NUR ---
Lying in bed with eyes open. Alert and oriented x4. Rates pain to abd, knees 8/10, will administer Morphine and Benadryl per patient request. Bowel sounds hypoactive. Patient denies passing flatus. Says that early this morning she passed some mucus. Is doing leg exercises in the bed. Denies additional needs.
--- NOTE | 2020-09-23 10:17 | NUR ---
Patient says pain in abd is better, continue to have leg pain. Administer Toradol per patient request. Remains in bed at this time. Denies additional needs.
[2020-09-23 11:19] VITALS: BP 131/77; PULSE 60; TEMP 98.2
--- NOTE | 2020-09-23 11:43 | NUR ---
Received call from Dr. Ferguson regarding patient to drink gastrograffin and then have abd CT 4 hours later. ANIKET Hsieh, updated and orders placed. CT notified and will bring gastrograffin to patient. Patient updated on plan. Rates pain 7/10 in abd and legs at this time and would like pain medication. Explain that if we do the morphine she is not able to get the Benadryl until around 1230. Patient says that she will wait for Morphine until around 1230 then so that she can get the Benadryl with it. Patient denies additional needs at this time.
--- NOTE | 2020-09-23 12:31 | NUR ---
Pain now 8/10 in abd and legs. Administer Morphine and Benadryl as prescribed per patient request. Patient has drank the gastrograffin. Denies additional needs.
--- NOTE | 2020-09-23 13:11 | NUR ---
Lying in bed on right side with eyes closed. Respirations even and unlabored. No signs or symptoms of discomfort noted at this time.
--- NOTE | 2020-09-23 15:15 | NUR ---
Patient calls out requesting pain medication for abd and leg pain. Discuss with the patient that she can have the Morphine every four hours with the Benadryl and the Toradol every six and explain the times that she can have these. Offer Tylenol and patient declines. Patient would like the Toradol as soon as she is able to get it as this would be the med she would be able to have first. Patient is lying in bed with eyes open. Denies additional needs at this time.
--- NOTE | 2020-09-23 15:31 | NUR ---
Receive call from CT they are coming to get patient for CT. Patient informed. Patient requests Ativan due to not being able to have pain medication. Ativan administered. Patient assisted up to wheelchair. Patient tearful. Explain that when she gets back we will be able to get her Toradol.
[2020-09-23 17:31] VITALS: BP 132/73; PULSE 61; TEMP 98.3
--- NOTE | 2020-09-23 17:38 | NUR ---
Go in patient room to reassess pain. Patient lying on right side, crying. Ask patient what her pain level is and patient will not answer question. Patient says that she just wants to go home because we are doing nothing for her here and she is getting nothing for her pain. Explain to the patient that I have given her pain medication several times today and I am back at this time to reassess her pain as I had just given her pain medication. Patient continues to not rate pain and says we are doing nothing for her so she jsut may as well go home and she is having pain. Again ask the patient about her pain and explain that we have Toradol that we can give if she is still in pain. Patient continues to not rate pain or answer if she wants Toradol. Again patient says that she wants to leave because we are doing nothing for her and not controlling her pain. Explain that I would let the hospitalist know what she is telling me and see if they will come see her. Spoke with Dr. Oseguera and updated him on situation, he asks if I can contact ANIKET Livingston, to come see patient. Spoke with ANIKET Livingston, and explain the situation. She will come see the patient.
--- NOTE | 2020-09-23 18:17 | NUR ---
Went in patient room to let her know that we are waiting on pharmacy to bring up Relistor for us to give SQ. Patient says that she is still having some pain. Explain that I can give her Toradol. Patient says that Yara was going to change her pain medication. Explain that I did not see any changes to the pain medication in the system. Patient now tearful. Agrees to Toradol. Called ANIKET Livingston, and she says that she is not going to change the Morphine order but she did add Bentyl. Administer Toradol as prescribed. Explain to the patient that Yara was not going to change the Morphine but she did order Bentyl as needed for abd pain and cramps. Patient says that is not going to work. Patient spouse on cell phone and asks how much longer we are going to allow her to go without doing something for her to have a bowel movement. Discuss meds that have been ordered with the patient spouse. Spouse says that they feel like nothing is being done about her not having a bowel movement. Explain that she has been on bowel rest and her CT she had done today shows that the obstruction has resolved. Explain that now that the obstruction has resolved we are going to give medications to assist the patient in having bowel movement. Explain that patient's usually have good response to the Relistor and if there are no results tomorrow, the provider may need to look at other options. Patient spouse says in the past the patient has gotten an enema that was very dark brown in color and that seemed to help. Explain that we will start with this medication tonight to see what that does. Explain that once the patient is able to move her bowels her pain should start to improve.
[2020-09-23 19:37] LABS: CREATININE, serum 0.66 (0.52-1.25); MAGNESIUM 1.9 mg/dL (1.6-2.3); POTASSIUM 3.3 mmol/L (3.4-5.0)
[2020-09-23 21:20] VITALS: BP 123/74; PULSE 63
[2020-09-24 00:19] VITALS: BP 127/75; PULSE 73; TEMP 97.5
--- NOTE | 2020-09-24 01:17 | NUR ---
Patient laying in bed, appears crying upon enter the room. Patient states she is feeling so frustrated about everything and wants to go home. Lots of comfort and emotional support provided. Abdomen soft and distendted. Patient reports still have no BM, no passing gas. Patient denies N/V. C/o pain to her abdomen 03/07. It's too early to give PRN pain meds at this time. All scheduled meds given per OCT. BS 62 tonight. Patient c/o very hungry and shaky at this time. Patient requests clear liquid diet. Called hospitalist ANIKET Lakhani and order recieved to start clear liquid diet. 8 oz of Apple juice offered. Call light within reach. Patient denies further needs at this time.
[2020-09-24 04:15] VITALS: BP 113/73; PULSE 62; TEMP 97.7
--- NOTE | 2020-09-24 06:11 | NUR ---
PRN pain meds given throughout the night for abdominal pain per patient request. Still not having BM. Patient started clear liquid diet from last night. Patient had 720ml of apple/grape/cranberry juices over the night. Patient tolerated well. No N/V noted. K+ level was 3.3 yesterday, and patient c/o frequent leg cramping. Called hospitalist ANIKET Lakhani and received order for potassium replacement. Potassium replaced over the night. Call light within reach. Will give report to day shift nurse.
[2020-09-24 07:35] LABS: BASO % 0.4 % (0.0-2.0); EOS # 0.2 (0.0-0.7); EOS % 3.5 % (0-4.0); GRAN # 2.1 (1.4-6.5); GRAN % 46.6 % (42.2-75.2); HEMOGLOBIN 10.4 g/dl (12.5-16.0); LYMPH # 1.8 (1.2-3.4); LYMPH % 38.6 % (20.0-51.0); MEAN CELL VOLUME 88 fl (80.0-100.0); MEAN CORPUSCULAR HEMOGLOBIN 28 pg (27.0-31.0); MEAN CORPUSCULAR HGB CONC 32 g/dl (33.0-37.0); MEAN PLATELET VOLUME 10.8 fl (7.4-10.4); MONO # 0.5 (0.1-0.6); MONO % 10.7 % (1.7-9.3); PLATELET COUNT 205 K/mm3 (130-400); RED BLOOD COUNT 3.71 M/mm3 (4.10-5.30); REDCELL DISTRIBUTION WIDTH-CV 13.9 % (11.5-14.5)
[2020-09-24 07:43] LABS: HEMATOCRIT 32.5 % (37.0-47.0)
[2020-09-24 07:44] LABS: ALBUMIN 3.4 gm/dL (3.5-5.0); BILIRUBIN,TOTAL 0.4 mg/dL (0.0-1.0); CALCIUM 10.2 mg/dL (8.4-10.2); CREATININE, serum 0.55 (0.52-1.25); MAGNESIUM 1.9 mg/dL (1.6-2.3); TOTAL PROTEIN 6.2 gm/dL (6.4-8.2)
[2020-09-24 07:53] VITALS: BP 136/68; PULSE 64; TEMP 97.4
--- NOTE | 2020-09-24 11:54 | NUR ---
Pt alert and oriented. complain of pain at 7/10, administered toradol for pain. Dr Gutiérrez authorized diet to be advanced as tolerated. clear lung sound, regular heart rhythm. NS 75ml/hr. Patient had medium soft formed bowel movement. Patient was started on bowel prep to help clear out her GI.
[2020-09-24 11:59] VITALS: BP 135/65; PULSE 65; TEMP 97.8
[2020-09-24 16:00] VITALS: BP 151/110; PULSE 116; TEMP 98.5
--- NOTE | 2020-09-24 18:33 | NUR ---
Patient had multiple bowel movement today.
[2020-09-24 19:35] LABS: FOLATE (FOLIC ACID) 17.9 ng/mL (7.0-31.4)
[2020-09-24 20:08] VITALS: BP 146/80; PULSE 79; TEMP 97.8
--- NOTE | 2020-09-24 23:35 | NUR ---
Patient laying in bed with bed sheet cover her face upon enter the room. Patient appears crying. Patient states she wants to go home. Emotional support provided. Patient refusing all medications, VS check and nursing care. Refusing PRN pain meds as well. Call light within reach. Patient denies any needs at this time.
--- NOTE | 2020-09-25 05:31 | NUR ---
Patient refusing all the meds over the night. Patient disconnected IV from her IV site and turned off IV pump. Patient states abdominal pain is feeling better this morning. Call light within reach. Will give report to day shift nurse.
[2020-09-25 06:58] LABS: BASO % 0.3 % (0.0-2.0); EOS # 0.2 (0.0-0.7); EOS % 2.9 % (0-4.0); GRAN # 3.3 (1.4-6.5); GRAN % 56.8 % (42.2-75.2); HEMOGLOBIN 10.9 g/dl (12.5-16.0); LYMPH # 1.7 (1.2-3.4); LYMPH % 28.9 % (20.0-51.0); MEAN CELL VOLUME 87 fl (80.0-100.0); MEAN CORPUSCULAR HEMOGLOBIN 28 pg (27.0-31.0); MEAN CORPUSCULAR HGB CONC 32 g/dl (33.0-37.0); MONO # 0.6 (0.1-0.6); MONO % 10.9 % (1.7-9.3); PLATELET COUNT 212 K/mm3 (130-400); REDCELL DISTRIBUTION WIDTH-CV 14.1 % (11.5-14.5)
[2020-09-25 07:08] LABS: CALCIUM 8.9 mg/dL (8.4-10.2); CREATININE, serum 0.61 (0.52-1.25); MAGNESIUM 1.8 mg/dL (1.6-2.3); POTASSIUM 3.5 mmol/L (3.4-5.0)
[2020-09-25 07:12] LABS: HEMATOCRIT 34.1 % (37.0-47.0)
[2020-09-25 07:54] VITALS: BP 137/65; PULSE 62
--- NOTE | 2020-09-25 11:21 | NUR ---
Patient alert and oriented. denies any pain. clear lung sound, normal heart sound. 2+pulse. round abdomen. denies any bowel movement today. patient refused breakfast, expressed interest in going home. hospitalist assessed patient. PCP office not reachable for followup appointment.
[2020-09-25 11:51] VITALS: BP 131/73; PULSE 71; TEMP 98.3
--- NOTE | 2020-09-25 13:00 | NUR ---
Patient removed INT herself, bandaid on site. Patient discharged home with .
== END 2020-09-25 14:00 | disposition home or self-care (01) | DRG 389 ==
LOC: COL.ER 23:32 → MEDICAL 09-21 02:07
PROVIDERS: Emergency Medicine; Physician Assistant; Student in an Organized Health Care Education/Training Program; ADMIT Student in an Organized Health Care Education/Training Program
DX: K56.600 Partial intestinal obstruction, unspecified as to cause (principal); F11.20 Opioid dependence, uncomplicated; K21.9 Gastro-esophageal reflux disease without esophagitis; K59.09 Other constipation; R00.0 Tachycardia, unspecified; I10 Essential (primary) hypertension; E78.5 Hyperlipidemia, unspecified; F32.9 Major depressive disorder, single episode, unspecified; F41.9 Anxiety disorder, unspecified; M54.5 Low back pain; G89.29 Other chronic pain; G43.909 Migraine, unspecified, not intractable, without status migrainosus; D53.9 Nutritional anemia, unspecified; E11.9 Type 2 diabetes mellitus without complications; Z88.6 Allergy status to analgesic agent
CPT/HCPCS: 99223-AI; 99232-AI; 99239; C9113; J0500; J1200; J1650; J1885; J2060; J2212; J2270; J2405; J7030; Q9967

== ENCOUNTER 2020-10-01 20:07 | Emergency (ER) | payer OTHER ==
[~2020-10-01] VITALS: Ht 149.9 cm; Wt 79.5 kg
[~2020-10-01 20:07] MED LIST changes: +AIMOVIG AU70 MG/1 ML SQ; +AMITIZA24 MCG PO; +B 12 PO; +VITAMIN D31000 I1 PO; +[UNRECOGNIZED DRUG - OTHER] SL
[2020-10-01 20:36] VITALS: BP 121/84; TEMP 98.1
[2020-10-01 21:27] LABS: BASO # 0.1 (0.0-0.2); BASO % 0.6 % (0.0-2.0); EOS # 0.2 (0.0-0.7); EOS % 2.2 % (0-4.0); GRAN # 4.8 (1.4-6.5); GRAN % 58.9 % (42.2-75.2); LYMPH # 2.5 (1.2-3.4); LYMPH % 30.2 % (20.0-51.0); MEAN CELL VOLUME 85 fl (80.0-100.0); MEAN CORPUSCULAR HEMOGLOBIN 28 pg (27.0-31.0); MEAN CORPUSCULAR HGB CONC 33 g/dl (33.0-37.0); MEAN PLATELET VOLUME 10.6 fl (7.4-10.4); MONO # 0.6 (0.1-0.6); MONO % 7.7 % (1.7-9.3); PLATELET COUNT 365 K/mm3 (130-400); RED BLOOD COUNT 4.23 M/mm3 (4.10-5.30)
[2020-10-01 21:37] LABS: ALANINE AMINOTRANSFERASE 17 U/L (4-34); ALBUMIN 4.2 gm/dL (3.5-5.0); ALKALINE PHOSPHATASE 100 U/L (50-136); ANION GAP 11 mmol/L (7-16); AST,SGOT 26 U/L (15-37); BILIRUBIN,TOTAL 0.4 mg/dL (0.0-1.0); BLOOD UREA NITROGEN 11 mg/dL (7-17); CALCIUM 8.8 mg/dL (8.4-10.2); CARBON DIOXIDE 24 mmol/L (22-30); CHLORIDE 103 mmol/L (98-107); CREATININE, serum 0.71 (0.52-1.25); GLUCOSE 146 mg/dL (74-106); LIPASE 175 U/L (23-300); SODIUM 138 mmol/L (137-145); TOTAL PROTEIN 7.3 gm/dL (6.4-8.2)
[2020-10-01 21:47] LABS: HEMATOCRIT 36.1 % (37.0-47.0)
[2020-10-01 21:50] LABS: TROPONIN-I < 0.012 ng/mL (0.000-0.035)
[2020-10-01] MEDS ORDERED: TYLENOL 325MG325 MG PO (23:38)
[2020-10-01 23:48] VITALS: PULSE 69
== END 2020-10-01 23:49 | disposition home or self-care (01) ==
LOC: COL.ER 20:07
PROVIDERS: Emergency Medicine
DX: K59.00 Constipation, unspecified (principal); K56.609 Unspecified intestinal obstruction, unspecified as to partial versus complete obstruction; I10 Essential (primary) hypertension; E78.5 Hyperlipidemia, unspecified; E78.00 Pure hypercholesterolemia, unspecified; Z88.6 Allergy status to analgesic agent; Z88.8 Allergy status to other drugs, medicaments and biological substances
CPT/HCPCS: J2405; Q9967

== ENCOUNTER 2021-01-03 18:47 | Emergency (ER) | payer OTHER ==
[~2021-01-03] VITALS: Ht 149.9 cm; Wt 81.8 kg
[~2021-01-03 18:47] MED LIST changes: +TYLENOL 325MG325 MG PO
[2021-01-03 18:53] VITALS: TEMP 99.4
[2021-01-03 19:25] VITALS: BP 130/74; PULSE 78
== END 2021-01-03 19:25 | disposition home or self-care (01) ==
LOC: COL.ER 18:47
DX: S61.012A Laceration without foreign body of left thumb without damage to nail, initial encounter (principal); I10 Essential (primary) hypertension; E78.5 Hyperlipidemia, unspecified; F32.9 Major depressive disorder, single episode, unspecified; F41.9 Anxiety disorder, unspecified; K21.9 Gastro-esophageal reflux disease without esophagitis; Z88.6 Allergy status to analgesic agent; Z88.8 Allergy status to other drugs, medicaments and biological substances; Z79.84 Long term (current) use of oral hypoglycemic drugs; Z79.899 Other long term (current) drug therapy; W26.9XXA Contact with unspecified sharp object(s), initial encounter

== ENCOUNTER 2021-01-22 10:47 | Emergency (ER) | payer OTHER ==
[~2021-01-22] VITALS: Ht 149.9 cm; Wt 80.0 kg
[2021-01-22 10:56] VITALS: TEMP 98
[2021-01-22 11:44] LABS: BASO % 0.4 % (0.0-2.0); EOS # 0.1 (0.0-0.7); EOS % 1.1 % (0-4.0); GRAN # 4.3 (1.4-6.5); GRAN % 56.4 % (42.2-75.2); HEMOGLOBIN 11.2 g/dl (12.5-16.0); LYMPH # 2.6 (1.2-3.4); LYMPH % 33.5 % (20.0-51.0); MEAN CELL VOLUME 85 fl (80.0-100.0); MEAN CORPUSCULAR HEMOGLOBIN 28 pg (27.0-31.0); MEAN CORPUSCULAR HGB CONC 33 g/dl (33.0-37.0); MEAN PLATELET VOLUME 10.9 fl (7.4-10.4); MONO # 0.6 (0.1-0.6); MONO % 8.3 % (1.7-9.3); PLATELET COUNT 291 K/mm3 (130-400); RED BLOOD COUNT 4.03 M/mm3 (4.10-5.30); REDCELL DISTRIBUTION WIDTH-CV 15.3 % (11.5-14.5)
[2021-01-22 11:46] LABS: HEMATOCRIT 34.2 % (37.0-47.0)
[2021-01-22 11:48] LABS: PROTHROMBIN TIME 10.8 SECONDS (9.7-12.8)
[2021-01-22 11:50] LABS: ALANINE AMINOTRANSFERASE 18 U/L (4-34); ALBUMIN 4.1 gm/dL (3.5-5.0); ALKALINE PHOSPHATASE 109 U/L (50-136); ANION GAP 4 mmol/L (7-16); AST,SGOT 30 U/L (15-37); BILIRUBIN,TOTAL 0.4 mg/dL (0.0-1.0); BLOOD UREA NITROGEN 7 mg/dL (7-17); CALCIUM 9.1 mg/dL (8.4-10.2); CARBON DIOXIDE 25 mmol/L (22-30); CHLORIDE 102 mmol/L (98-107); CREATININE, serum 0.57 (0.52-1.25); GLUCOSE 154 mg/dL (74-106); PARTIAL THROMBOPLASTIN TIME 30.1 SECONDS (26.0-37.0); POTASSIUM 3.9 mmol/L (3.4-5.0); SODIUM 132 mmol/L (137-145); TOTAL PROTEIN 7.6 gm/dL (6.4-8.2)
[2021-01-22 12:02] LABS: TROPONIN-I < 0.012 ng/mL (0.000-0.035)
[2021-01-22] MEDS ORDERED: BENTYL 20MG20 MG/TAB PO (16:09)
[2021-01-22 16:24] VITALS: BP 125/74; PULSE 68
== END 2021-01-22 16:27 | disposition home or self-care (01) ==
LOC: COL.ER 10:47
PROVIDERS: Family Medicine
DX: K59.00 Constipation, unspecified (principal); I10 Essential (primary) hypertension; E78.5 Hyperlipidemia, unspecified; F41.9 Anxiety disorder, unspecified; F32.9 Major depressive disorder, single episode, unspecified; K21.9 Gastro-esophageal reflux disease without esophagitis; Z90.49 Acquired absence of other specified parts of digestive tract; Z98.84 Bariatric surgery status; Z79.899 Other long term (current) drug therapy
CPT/HCPCS: C9113; J2270; J2405; J2550

== ENCOUNTER → 2021-02-25 | Outpatient (CLI) | payer OTHER ==
[~2021-02-25] MED LIST changes: +BENTYL 20MG20 MG/TAB PO
== END ==
LOC: COL.RAD 02-05 07:30
DX: M17.12 Unilateral primary osteoarthritis, left knee (principal); M61.40 Other calcification of muscle, unspecified site; Z90.710 Acquired absence of both cervix and uterus

== ENCOUNTER 2021-05-19 17:16 | Emergency (ER) | payer OTHER ==
[~2021-05-19] VITALS: Ht 149.9 cm; Wt 85.0 kg
[2021-05-19 17:18] VITALS: TEMP 98.2
[2021-05-19 17:50] LABS: BASO % 0.3 % (0.0-2.0); EOS # 0.1 (0.0-0.7); EOS % 0.8 % (0-4.0); GRAN # 9.7 (1.4-6.5); GRAN % 82.3 % (42.2-75.2); HEMOGLOBIN 11.4 g/dl (12.5-16.0); LYMPH # 1.4 (1.2-3.4); LYMPH % 11.6 % (20.0-51.0); MEAN CELL VOLUME 83 fl (80.0-100.0); MEAN CORPUSCULAR HEMOGLOBIN 26 pg (27.0-31.0); MEAN CORPUSCULAR HGB CONC 32 g/dl (33.0-37.0); MEAN PLATELET VOLUME 11.5 fl (7.4-10.4); MONO # 0.5 (0.1-0.6); MONO % 4.6 % (1.7-9.3); PLATELET COUNT 270 K/mm3 (130-400); RED BLOOD COUNT 4.35 M/mm3 (4.10-5.30)
[2021-05-19 17:53] LABS: HEMATOCRIT 36.2 % (37.0-47.0)
[2021-05-19 17:58] LABS: ACETAMINOPHEN < 10 ug/mL (10-30); ALANINE AMINOTRANSFERASE 14 U/L (4-34); ALBUMIN 2.8 gm/dL (3.5-5.0); ALCOHOL(ethanol),MEDICAL < 10 mg/dL; ALKALINE PHOSPHATASE 73 U/L (50-136); ANION GAP 9 mmol/L (7-16); AST,SGOT 21 U/L (15-37); BILIRUBIN,TOTAL 0.3 mg/dL (0.0-1.0); BLOOD UREA NITROGEN 8 mg/dL (7-17); CALCIUM 6.2 mg/dL (8.4-10.2); CARBON DIOXIDE 18 mmol/L (22-30); CHLORIDE 115 mmol/L (98-107); CREATININE, serum 0.49 (0.52-1.25); GLUCOSE 158 mg/dL (74-106); POTASSIUM 3.3 mmol/L (3.4-5.0); SALICYLATE < 1.0 mg/dL; SODIUM 142 mmol/L (137-145); TOTAL PROTEIN 5.4 gm/dL (6.4-8.2)
[2021-05-19 18:24] LABS: TRICYCLIC ANTIDEPRESS URINE NEGATIVE
[2021-05-20 01:42] VITALS: BP 134/89; PULSE 77
== END 2021-05-20 01:42 | disposition home or self-care (01) ==
LOC: COL.ER 17:16
PROVIDERS: Personal Emergency Response Attendant
DX: T40.2X2A Poisoning by other opioids, intentional self-harm, initial encounter (principal); E78.00 Pure hypercholesterolemia, unspecified; Z79.899 Other long term (current) drug therapy

== ENCOUNTER 2021-08-28 10:03 | Emergency (ER) | payer OTHER ==
[~2021-08-28] VITALS: Ht 149.9 cm; Wt 77.7 kg
[2021-08-28 10:46] VITALS: TEMP 97.9
[2021-08-28 10:59] LABS: BASO # 0.1 K/mm3 (0.0-0.2); BASO % 0.4 % (0.0-2.0); EOS # 0.2 K/mm3 (0.0-0.7); EOS % 1.7 % (0.0-4.0); GRAN # 9.9 K/mm3 (1.4-6.5); GRAN % 71.2 % (42.2-75.2); HEMATOCRIT 40.4 % (37.0-47.0); HEMOGLOBIN 12.8 g/dl (12.5-16.0); LYMPH # 2.9 K/mm3 (1.2-3.4); LYMPH % 20.6 % (20.0-51.0); MEAN CELL VOLUME 84 fl (80.0-100.0); MEAN CORPUSCULAR HEMOGLOBIN 26 pg (27-31); MEAN CORPUSCULAR HGB CONC 32 g/dl (33.0-37.0); MONO # 0.8 K/mm3 (0.1-0.6); MONO % 5.7 % (1.7-9.3); PLATELET COUNT 324 K/mm3 (130-400); RED BLOOD COUNT 4.84 M/mm3 (4.10-5.30); REDCELL DISTRIBUTION WIDTH-CV 15.9 % (11.5-14.5)
[2021-08-28 11:15] LABS: ALBUMIN 3.7 gm/dL (3.5-5.0); BILIRUBIN,TOTAL 1.2 mg/dL (0.2-1.2); C-REACTIVE PROTEIN 18.01 mg/dL (0.00-0.50); CALCIUM 9.3 mg/dL (8.4-10.2); CREATININE, serum 0.77 mg/dL (0.57-1.11); POTASSIUM 3.6 mmol/L (3.5-4.5); TOTAL PROTEIN 7.7 gm/dL (6.2-8.1)
[2021-08-28 12:09] LABS: COLLECTION METHOD CLEAN CATCH
[2021-08-28 12:16] LABS: MUCOUS Present (NOT PRESENT); PH 5 (5-8); SQUAMOUS EPITHELIAL 0-2 /hpf (0-10); URINE APPEARANCE Hazy (CLEAR/HAZY); URINE BACTERIA None Seen /hpf (NONE SEEN); URINE BILIRUBIN Negative (NEGATIVE); URINE BLOOD Negative (NEGATIVE); URINE COLOR Yellow (YELLOW); URINE GLUCOSE 1+ (NEGATIVE); URINE KETONE Negative (NEGATIVE); URINE LEUKOCYTE ESTERASE Negative (NEGATIVE); URINE NITRATE Negative (NEGATIVE); URINE PROTEIN(semi-quant) Negative (NEGATIVE); URINE RBC 0-2 /hpf (0-2); URINE UROBILINOGEN Negative (NEGATIVE)
[2021-08-28] MEDS ORDERED: ZITHROMAX Z PA250 MG PO ×2 (13:28)
[2021-08-28] MEDS ORDERED: DOXYCYCLINE 10100 MG PO (13:31)
[2021-08-28 14:19] VITALS: BP 149/98; PULSE 107
== END 2021-08-28 14:27 | disposition home or self-care (01) ==
LOC: COL.ER 10:03
PROVIDERS: Nurse Practitioner
DX: J18.1 Lobar pneumonia, unspecified organism (principal); I10 Essential (primary) hypertension; E78.5 Hyperlipidemia, unspecified; F32.A Depression, unspecified; E78.00 Pure hypercholesterolemia, unspecified; Z79.899 Other long term (current) drug therapy; Z20.822 Contact with and (suspected) exposure to COVID-19
CPT/HCPCS: J2405; J7030; Q9967

== ENCOUNTER 2021-09-03 09:48 | Emergency (ER) | payer OTHER ==
[~2021-09-03] VITALS: Ht 149.9 cm; Wt 78.6 kg
[~2021-09-03 09:48] MED LIST changes: +DOXYCYCLINE 10100 MG PO; +ZITHROMAX Z PA250 MG PO
[2021-09-03 10:03] VITALS: TEMP 98.3
[2021-09-03 10:48] LABS: BASO % 0.6 % (0.0-2.0); EOS # 0.1 K/mm3 (0.0-0.7); GRAN # 4.4 K/mm3 (1.4-6.5); GRAN % 65.4 % (42.2-75.2); HEMATOCRIT 37.2 % (37.0-47.0); LYMPH # 1.7 K/mm3 (1.2-3.4); LYMPH % 25.8 % (20.0-51.0); MEAN CELL VOLUME 82 fl (80.0-100.0); MEAN CORPUSCULAR HEMOGLOBIN 26 pg (27-31); MEAN CORPUSCULAR HGB CONC 32 g/dl (33.0-37.0); MEAN PLATELET VOLUME 10.5 fl (7.4-10.4); MONO # 0.5 K/mm3 (0.1-0.6); MONO % 6.8 % (1.7-9.3); PLATELET COUNT 289 K/mm3 (130-400); RED BLOOD COUNT 4.55 M/mm3 (4.10-5.30); REDCELL DISTRIBUTION WIDTH-CV 15.2 % (11.5-14.5)
[2021-09-03 10:53] LABS: ALBUMIN 3.3 gm/dL (3.5-5.0); BILIRUBIN,TOTAL 0.4 mg/dL (0.2-1.2); C-REACTIVE PROTEIN 0.32 mg/dL (0.00-0.50); CALCIUM 8.8 mg/dL (8.4-10.2); CREATININE, serum 0.73 mg/dL (0.57-1.11); POTASSIUM 3.9 mmol/L (3.5-4.5); TOTAL PROTEIN 6.9 gm/dL (6.2-8.1)
[2021-09-03 11:16] LABS: COLLECTION METHOD CLEAN CATCH
[2021-09-03 11:22] LABS: MUCOUS Present (NOT PRESENT); PH 5 (5-8); URINE APPEARANCE Hazy (CLEAR/HAZY); URINE BACTERIA Rare /hpf (NONE SEEN); URINE BILIRUBIN Negative (NEGATIVE); URINE BLOOD Negative (NEGATIVE); URINE COLOR Yellow (YELLOW); URINE GLUCOSE Negative (NEGATIVE); URINE KETONE Trace (NEGATIVE); URINE LEUKOCYTE ESTERASE Negative (NEGATIVE); URINE NITRATE Negative (NEGATIVE); URINE PROTEIN(semi-quant) Negative (NEGATIVE); URINE RBC 0-2 /hpf (0-2); URINE UROBILINOGEN Negative (NEGATIVE)
[2021-09-03] MEDS ORDERED: ZOFRAN ODT4 MG PO (11:46)
[2021-09-03 12:07] VITALS: BP 141/79; PULSE 65
== END 2021-09-03 12:08 | disposition home or self-care (01) ==
LOC: COL.ER 09:48
PROVIDERS: Physician Assistant
DX: J18.9 Pneumonia, unspecified organism (principal); R55 Syncope and collapse; I10 Essential (primary) hypertension; E78.5 Hyperlipidemia, unspecified; E78.00 Pure hypercholesterolemia, unspecified; E11.9 Type 2 diabetes mellitus without complications; Z20.822 Contact with and (suspected) exposure to COVID-19; Z79.84 Long term (current) use of oral hypoglycemic drugs; Z79.899 Other long term (current) drug therapy
CPT/HCPCS: J2405; J7030

== ENCOUNTER 2022-01-22 14:30 | Outpatient (RCR) | payer OTHER | END 2022-01-26 | disposition home or self-care (01) | LOC: PT.GENESIS | DX: M54.41 Lumbago with sciatica, right side (principal); G89.29 Other chronic pain; M25.561 Pain in right knee; M25.551 Pain in right hip ==

== ENCOUNTER 2022-01-31 07:04 | Inpatient (IN) | payer OTHER ==
[~2022-01-31] VITALS: Ht 149.9 cm; Wt 81.0 kg
[2022-01-31] VITALS (680 sets, daily range): BP systolic 108–125; BP diastolic 69–88; PULSE 75–88; TEMP 97.6–100; O2SAT 85–100
[2022-01-31 07:41] LABS: BASO % 0.4 % (0.0-2.0); EOS % 0.2 % (0.0-4.0); GRAN # 3.5 K/mm3 (1.4-6.5); GRAN % 75.1 % (42.2-75.2); HEMOGLOBIN 13.2 g/dl (12.5-16.0); LYMPH # 1.1 K/mm3 (1.2-3.4); LYMPH % 23.2 % (20.0-51.0); MEAN CELL VOLUME 86 fl (80.0-100.0); MEAN CORPUSCULAR HEMOGLOBIN 28 pg (27-31); MEAN CORPUSCULAR HGB CONC 32 g/dl (33.0-37.0); MEAN PLATELET VOLUME 10.3 fl (7.4-10.4); MONO % 0.9 % (1.7-9.3); PLATELET COUNT 370 K/mm3 (130-400); RED BLOOD COUNT 4.78 M/mm3 (4.10-5.30); REDCELL DISTRIBUTION WIDTH-CV 14.6 % (11.5-14.5)
[2022-01-31 08:02] LABS: ALBUMIN 3.2 gm/dL (3.5-5.0); BILIRUBIN,TOTAL 0.4 mg/dL (0.2-1.2); C-REACTIVE PROTEIN 0.44 mg/dL (0.00-0.50); CALCIUM 8.3 mg/dL (8.4-10.2); CREATININE, serum 0.7 mg/dL (0.57-1.11); POTASSIUM 3.8 mmol/L (3.5-4.5); TOTAL PROTEIN 6.8 gm/dL (6.2-8.1)
[2022-01-31 08:13] LABS: ARTERIAL BLD GAS O2 SATURATION 94.3 % (92-100); ARTERIAL BLD GAS TCO2 CT 22.9; ARTERIAL BLOOD GAS BASE EXCESS -3.1 (-2-2); ARTERIAL BLOOD GAS HCO3 21.8 meq/L (22-26); ARTERIAL BLOOD GAS PCO2 38.5 mmHg (35-45); ARTERIAL BLOOD GAS PO2 79.1 mmHg (80-100); ARTERIAL BLOOD GAS pH 7.37 (7.35-7.45)
[2022-01-31] MEDS ORDERED: ALLEGRA ALLERG180 MG PO (10:32)
[2022-01-31] MEDS ORDERED: ALLEGRA 180MG180 MG PO (10:33)
[2022-01-31] MEDS ORDERED: PROBIOTIC ACID1 EAC3 PO (10:34)
[2022-01-31] MEDS ORDERED: GLUCOTROL XL5 MG/TAB PO ×2 (10:34→10:35)
[2022-01-31] MEDS ORDERED: KLONOPIN 0.5MG0.5 MG PO (10:35)
[2022-01-31] MEDS ORDERED: FLEXERIL5 MG PO (10:36)
--- NOTE | 2022-01-31 10:39 | NUR ---
PT MED REC COMPLETED USING PT'S HOME MED LIST.
[2022-01-31 11:27] LABS: COLLECTION METHOD CLEAN CATCH
[2022-01-31 11:36] LABS: MUCOUS Present (NOT PRESENT); PH 5 (5-8); SQUAMOUS EPITHELIAL 0-2 /hpf (0-10); URINE APPEARANCE Clear (CLEAR/HAZY); URINE BACTERIA None Seen /hpf (NONE SEEN); URINE BILIRUBIN Negative (NEGATIVE); URINE BLOOD Negative (NEGATIVE); URINE COLOR Yellow (YELLOW); URINE GLUCOSE 1+ (NEGATIVE); URINE KETONE Negative (NEGATIVE); URINE LEUKOCYTE ESTERASE Negative (NEGATIVE); URINE NITRATE Negative (NEGATIVE); URINE PROTEIN(semi-quant) Negative (NEGATIVE); URINE RBC 0-2 /hpf (0-2); URINE UROBILINOGEN Negative (NEGATIVE)
[2022-01-31 17:14] LABS: ARTERIAL BLD GAS O2 SATURATION 95.5 % (92-100); ARTERIAL BLD GAS TCO2 CT 20.9; ARTERIAL BLOOD GAS BASE EXCESS -4.2 (-2-2); ARTERIAL BLOOD GAS HCO3 19.9 meq/L (22-26); ARTERIAL BLOOD GAS PCO2 33.5 mmHg (35-45); ARTERIAL BLOOD GAS PO2 82.8 mmHg (80-100); ARTERIAL BLOOD GAS pH 7.39 (7.35-7.45)
[2022-02-01] VITALS (613 sets, daily range): BP systolic 102–114; BP diastolic 64–75; PULSE 63–94; TEMP 97.2–98; O2SAT 78–100
[2022-02-01 05:55] LABS: MEAN CELL VOLUME 87 fl (80.0-100.0); MEAN CORPUSCULAR HGB CONC 32 g/dl (33.0-37.0); MEAN PLATELET VOLUME 10.6 fl (7.4-10.4); RED BLOOD COUNT 3.74 M/mm3 (4.10-5.30); REDCELL DISTRIBUTION WIDTH-CV 14.7 % (11.5-14.5)
[2022-02-01 06:01] LABS: HEMATOCRIT 32.5 % (37.0-47.0); HEMOGLOBIN 10.5 g/dl (12.5-16.0); MEAN CORPUSCULAR HEMOGLOBIN 28 pg (27-31); PLATELET COUNT 195 K/mm3 (130-400)
[2022-02-01 06:11] LABS: CALCIUM 8.5 mg/dL (8.4-10.2); CREATININE, serum 0.68 mg/dL (0.57-1.11); POTASSIUM 4.2 mmol/L (3.5-4.5)
[2022-02-01 06:26] LABS: BAND 18 % (0-10); HYPOCHROMIA 1+; LYMPHOCYTE 5 % (20.0-51.0); METAMYELOCYTE 1 % (0-0); MICROCYTOSIS 1+; MYELOCYTE 1 % (0-0); NEUTROPHILS 72 % (42.0-75.2); PLATELET ESTIMATE NORMAL (NORMAL)
--- NOTE | 2022-02-01 09:25 | NUR ---
PATIENT RESTING IN BED, AWAKE, ALERT, ORIENTED. DOES ENDORSE SOME SHORTNESS OF BREATH, CURRENTLY SATTING WELL ON ROOM AIR. RAMOS CATHETER D/C'D AT 0845. ALL SAFETY MEASURES MAINTAINED. NO CHANGES FROM DOCUMENTED ASSESSMENT, WILL CONTINUE TO MONITOR
--- NOTE | 2022-02-01 10:48 | NUR ---
workers compensation claims analyst met with patient to complete intake. Patient reports that she lives at home with her Darrick ([phone]). Patient would like her daughter Flores taken off of her emergency contact. SW removed contact . Patient reports that she is independent with her ADL's but has a hard time with showering, dressing and cooking due to her pain. States that she sometimes sleeps on the sofa becuase her pain limits her getting up the stairs to her bedroom. Patient reports to no DME or home oxygen use. PCP is and she utilizes both [facility] and [facility] for medications. Patient states that she is currently is doing water therapy at [facility]. She denies having a DPOA-HC established stating that she is ok with her being her decision maker.
--- NOTE | 2022-02-01 13:48 | NUR ---
PATIENT TRANSFERRED TO BED 308 AT 1330. STAFF ON FLOOR AWARE OF PATIENT TRANSFER. CHART DROPPED AT DESK.
--- NOTE | 2022-02-01 19:58 | NUR ---
TX GIVEN VIA MOUTHPIECE, TOLERATED WELL.
--- NOTE | 2022-02-01 21:39 | NUR ---
Patient assessed around 2004. Complained of neck and back pain at that time, and given PRN Flexeril and APAP. Peripheral INT to right AC. Denies SOB and dyspnea, stating that she is feeling better. On oxygen at 1 L/min via NC. Voiced no further questions, needs, or concerns at time of assessment. In bed with call light within reach.
[2022-02-02 00:53] VITALS: BP 116/61; PULSE 74; TEMP 97.6
[2022-02-02 05:20] VITALS: BP 121/75; PULSE 68; TEMP 97.9
--- NOTE | 2022-02-02 06:06 | NUR ---
Patient given PRN pain medications during the night as requested. Continues on IV ABX and steroids per orders. Voices no questions, needs, or concerns at this time. In bed with call light within reach.
[2022-02-02 07:28] VITALS: BP 133/77; PULSE 60; TEMP 97.7
[2022-02-02 08:00] LABS: MEAN CELL VOLUME 87 fl (80.0-100.0); MEAN CORPUSCULAR HGB CONC 32 g/dl (33.0-37.0); PLATELET COUNT 187 K/mm3 (130-400); RED BLOOD COUNT 3.48 M/mm3 (4.10-5.30); REDCELL DISTRIBUTION WIDTH-CV 15.2 % (11.5-14.5)
[2022-02-02 08:02] LABS: HEMATOCRIT 30.3 % (37.0-47.0); HEMOGLOBIN 9.8 g/dl (12.5-16.0); MEAN CORPUSCULAR HEMOGLOBIN 28 pg (27-31)
[2022-02-02 08:10] LABS: CALCIUM 9.1 mg/dL (8.4-10.2); CREATININE, serum 0.74 mg/dL (0.57-1.11); POTASSIUM 3.9 mmol/L (3.5-4.5)
[2022-02-02 08:16] LABS: BAND 6 % (0-10); HYPOCHROMIA 1+; LYMPHOCYTE 8 % (20.0-51.0); NEUTROPHILS 86 % (42.0-75.2); PLATELET ESTIMATE NORMAL (NORMAL)
[2022-02-02 08:17] LABS: ANISOCYTOSIS 1+
--- NOTE | 2022-02-02 10:13 | NUR ---
Seat Cover Maker collaborated with RN who advised patient has been indpendent in her room.
--- NOTE | 2022-02-02 10:36 | NUR ---
PT RESTING IN BED. MORNING MEDICATIONS GIVEN. SHIFT ASSESSMENT COMPLETED. PT REPORTS PAIN TO NECK, SHOULDER, AND BACK, MEDICATION GIVEN PER eMAR. PT REPORTS INCREASED ANXIETY. CURRENTLY ON ROOM AIR. STATES SHE HASN'T HAD A BOWEL MOVEMENT AND HER ABDOMEN FEELS DISTENDED, HOSPITALIST AWARE. WILL CONTINUE TO MONITOR.
[2022-02-02 11:27] VITALS: BP 122/80; PULSE 64; TEMP 97.7
[2022-02-02] MEDS ORDERED: TAMIFLU 75MG75 MG PO (14:37)
[2022-02-02] MEDS ORDERED: DOXYCYCLINE 10100 MG PO (14:39)
[2022-02-02] MEDS ORDERED: CEFTIN500 MG PO (14:39)
[2022-02-02] MEDS ORDERED: PREDNISONE20 MG PO (14:40)
--- NOTE | 2022-02-02 15:33 | NUR ---
D/C IV. DISCHARGE INSTRUCTIONS GIVEN, ALL QUESTIONS ANSWERED. PT PACKING BELONGINGS AND WAITING ON RIDE TO ARRIVE.
== END 2022-02-02 15:41 | disposition home or self-care (01) | DRG 193 ==
LOC: COL.ER 07:04 → ICU 08:05 → MEDICAL 08:05
PROVIDERS: Family Medicine; Physician Assistant; ADMIT Internal Medicine
PROC: 5A0935A Assistance with Respiratory Ventilation, Less than 24 Consecutive Hours, High Flow/Velocity Cannula (ICD-10-PCS; principal; 2022-01-31)
DX: J11.00 Influenza due to unidentified influenza virus with unspecified type of pneumonia (principal); J96.01 Acute respiratory failure with hypoxia; E87.2 Acidosis; I10 Essential (primary) hypertension; E78.5 Hyperlipidemia, unspecified; F32.A Depression, unspecified; K21.9 Gastro-esophageal reflux disease without esophagitis; G89.29 Other chronic pain; M54.50 Low back pain, unspecified; F10.10 Alcohol abuse, uncomplicated; E11.9 Type 2 diabetes mellitus without complications; D64.9 Anemia, unspecified; R10.9 Unspecified abdominal pain; F41.9 Anxiety disorder, unspecified; T50.3X5A Adverse effect of electrolytic, caloric and water-balance agents, initial encounter; K59.00 Constipation, unspecified; E07.89 Other specified disorders of thyroid; Z20.822 Contact with and (suspected) exposure to COVID-19; Z98.84 Bariatric surgery status; Z90.49 Acquired absence of other specified parts of digestive tract; Z90.710 Acquired absence of both cervix and uterus; Z88.6 Allergy status to analgesic agent; Z88.8 Allergy status to other drugs, medicaments and biological substances; Z91.51 Personal history of suicidal behavior; Z79.891 Long term (current) use of opiate analgesic; Z23 Encounter for immunization
CPT/HCPCS: 99232-AI; 99233-AI; 99239; A4314; A9284; J0456; J0692; J0696; J1650; J1815; J2060; J2920; J3411; J7030; J7050; J7120; Q9967

== ENCOUNTER → 2022-02-16 | Outpatient (CLI) | payer OTHER ==
[~2022-02-16] MED LIST changes: +ALLEGRA 180MG180 MG PO; +ALLEGRA ALLERG180 MG PO; +CEFTIN500 MG PO; +FLEXERIL5 MG PO; +GLUCOTROL XL5 MG/TAB PO; +PROBIOTIC ACID1 EAC3 PO; +TAMIFLU 75MG75 MG PO
== END ==
LOC: COL.RAD 14:01
DX: J18.9 Pneumonia, unspecified organism (principal)

== ENCOUNTER 2022-02-17 13:15 | Outpatient (RCR) | payer OTHER ==
[2022-02-01] VITALS (179 sets, daily range): O2SAT 80–100
== END 2022-02-25 | disposition home or self-care (01) ==
LOC: PT.GENESIS
DX: M54.41 Lumbago with sciatica, right side (principal); M25.561 Pain in right knee; M25.551 Pain in right hip; G89.29 Other chronic pain

== ENCOUNTER 2022-03-19 09:45 | Outpatient (RCR) | payer OTHER ==
[2022-02-01 06:39] VITALS: O2SAT 92
== END 2022-03-23 10:59 | disposition home or self-care (01) ==
LOC: PT.GENESIS 09:45
DX: M54.41 Lumbago with sciatica, right side (principal); M25.561 Pain in right knee; G89.29 Other chronic pain; M25.551 Pain in right hip

== ENCOUNTER 2022-03-25 13:00 | Outpatient (RCR) | payer OTHER | END 2022-03-28 | disposition home or self-care (01) | LOC: WSOT | DX: M79.602 Pain in left arm (principal) ==

== ENCOUNTER 2022-04-26 15:00 | Outpatient (RCR) | payer OTHER | END 2022-04-28 | disposition home or self-care (01) | LOC: WSOT | DX: M79.602 Pain in left arm (principal) ==

== ENCOUNTER → 2022-04-27 | Outpatient (CLI) | payer OTHER | LOC: COL.VAS 08:13 | DX: M79.602 Pain in left arm (principal) ==

== ENCOUNTER → 2022-09-27 | Outpatient (CLI) | payer OTHER ==
[~2022-09-27] MED LIST changes: +ATROVENT NASAL15 ML NS; +CARAFATE S1 GM/10 ML; +LYRICA 100MG C100 M1 PO; +NEXIUM 20MG20 MG; +REGLAN 10MG10 MG/TAB; +TRULICITY0.75 MG/0. SQ
== END ==
LOC: MC.RAD 13:52
DX: N63.10 Unspecified lump in the right breast, unspecified quadrant (principal); N63.20 Unspecified lump in the left breast, unspecified quadrant

== ENCOUNTER 2022-11-27 06:32 | Emergency (ER) | payer OTHER ==
[~2022-11-27] VITALS: Ht 149.9 cm; Wt 76.4 kg
[2022-11-27 06:38] VITALS: TEMP 97.9
[2022-11-27 07:14] LABS: COLLECTION METHOD CLEAN CATCH
[2022-11-27 07:20] LABS: BASO % 0.3 % (0.0-2.0); EOS % 0.3 % (0.0-4.0); GRAN # 8.5 K/mm3 (1.4-6.5); GRAN % 71.3 % (42.2-75.2); HEMATOCRIT 37.2 % (37.0-47.0); HEMOGLOBIN 12.4 g/dl (12.5-16.0); LYMPH # 2.5 K/mm3 (1.2-3.4); LYMPH % 20.8 % (20.0-51.0); MEAN CELL VOLUME 89 fl (80.0-100.0); MEAN CORPUSCULAR HEMOGLOBIN 30 pg (27-31); MEAN CORPUSCULAR HGB CONC 33 g/dl (33.0-37.0); MEAN PLATELET VOLUME 10.6 fl (7.4-10.4); MONO # 0.8 K/mm3 (0.1-0.6); MONO % 6.9 % (1.7-9.3); PLATELET COUNT 280 K/mm3 (130-400); RED BLOOD COUNT 4.18 M/mm3 (4.10-5.30); REDCELL DISTRIBUTION WIDTH-CV 14.2 % (11.5-14.5)
[2022-11-27 07:32] LABS: MUCOUS Present (NOT PRESENT); SQUAMOUS EPITHELIAL None Seen /hpf (0-10); URINE BACTERIA Rare /hpf (NONE SEEN); URINE RBC None Seen /hpf (0-2)
[2022-11-27 07:35] LABS: URINE APPEARANCE Clear (CLEAR/HAZY); URINE BLOOD Negative (NEGATIVE); URINE COLOR Yellow (YELLOW); URINE GLUCOSE Negative (NEGATIVE); URINE KETONE Negative (NEGATIVE); URINE NITRATE Negative (NEGATIVE); URINE PROTEIN(semi-quant) Negative (NEGATIVE); URINE UROBILINOGEN 0.2 E.U/dL (0.2-1.0)
[2022-11-27 07:42] LABS: ALBUMIN 3.9 gm/dL (3.5-5.0); BILIRUBIN,TOTAL 0.5 mg/dL (0.2-1.2); CALCIUM 9.9 mg/dL (8.4-10.2); CREATININE, serum 0.9 mg/dL (0.57-1.11); POTASSIUM 3.6 mmol/L (3.5-4.5); TOTAL PROTEIN 7.5 gm/dL (6.2-8.1)
[2022-11-27] MEDS ORDERED: ZOFRAN ODT4 MG PO (11:46)
[2022-11-27] MEDS ORDERED: MIRALAX510G PO (11:46)
[2022-11-27] MEDS ORDERED: PERCOCET 325 MG1 TA2 PO (11:46)
[2022-11-27 13:10] VITALS: BP 106/73; PULSE 88
== END 2022-11-27 13:10 | disposition home or self-care (01) ==
LOC: COL.ER 06:32
PROVIDERS: Emergency Medicine
DX: K91.30 Postprocedural intestinal obstruction, unspecified as to partial versus complete (principal); D72.829 Elevated white blood cell count, unspecified; Z98.84 Bariatric surgery status; Z86.16 Personal history of COVID-19; Z88.6 Allergy status to analgesic agent
CPT/HCPCS: J2270; J2405; J3010; J7120; Q9967

== ENCOUNTER 2022-11-28 08:38 | Emergency (ER) | payer OTHER ==
[~2022-11-28] VITALS: Ht 149.9 cm; Wt 76.4 kg
[~2022-11-28 08:38] MED LIST changes: +MIRALAX510G PO
[2022-11-28 09:28] LABS: BASO % 0.5 % (0.0-2.0); EOS # 0.1 K/mm3 (0.0-0.7); EOS % 1.2 % (0.0-4.0); GRAN # 5.5 K/mm3 (1.4-6.5); GRAN % 68.2 % (42.2-75.2); HEMOGLOBIN 11.5 g/dl (12.5-16.0); LYMPH # 1.9 K/mm3 (1.2-3.4); MEAN CELL VOLUME 89 fl (80.0-100.0); MEAN CORPUSCULAR HEMOGLOBIN 29 pg (27-31); MEAN CORPUSCULAR HGB CONC 33 g/dl (33.0-37.0); MEAN PLATELET VOLUME 10.9 fl (7.4-10.4); MONO # 0.6 K/mm3 (0.1-0.6); MONO % 6.9 % (1.7-9.3); PLATELET COUNT 295 K/mm3 (130-400); RED BLOOD COUNT 3.92 M/mm3 (4.10-5.30); REDCELL DISTRIBUTION WIDTH-CV 14.3 % (11.5-14.5)
[2022-11-28 09:30] LABS: HEMATOCRIT 34.8 % (37.0-47.0)
[2022-11-28 09:51] LABS: ALANINE AMINOTRANSFERASE 24 U/L (0-55); ALBUMIN 3.4 gm/dL (3.5-5.0); ALKALINE PHOSPHATASE 108 U/L (40-150); ANION GAP 11 mmol/L (7-16); AST,SGOT 32 U/L (5-34); BILIRUBIN,TOTAL 1.5 mg/dL (0.2-1.2); BLOOD UREA NITROGEN 24 mg/dL (10-20); CALCIUM 8.7 mg/dL (8.4-10.2); CARBON DIOXIDE 19 mmol/L (22-29); CHLORIDE 103 mmol/L (98-107); CREATININE, serum 1.02 mg/dL (0.57-1.11); GLUCOSE 100 mg/dL (70-99); POTASSIUM 4.2 mmol/L (3.5-4.5); SODIUM 133 mmol/L (136-145); TOTAL PROTEIN 6.5 gm/dL (6.2-8.1)
[2022-11-28 09:54] LABS: TROPONIN-I < 0.010 ng/mL (0.00-0.033)
[2022-11-28 12:20] VITALS: BP 95/68; PULSE 84; TEMP 98.3
== END 2022-11-28 12:25 | disposition short-term general hospital (02) ==
LOC: COL.ER 08:38
PROVIDERS: Emergency Medicine
DX: J18.9 Pneumonia, unspecified organism (principal); G93.40 Encephalopathy, unspecified; J96.91 Respiratory failure, unspecified with hypoxia; K56.609 Unspecified intestinal obstruction, unspecified as to partial versus complete obstruction; Z98.84 Bariatric surgery status; Z90.49 Acquired absence of other specified parts of digestive tract; Z86.16 Personal history of COVID-19; Z20.822 Contact with and (suspected) exposure to COVID-19
CPT/HCPCS: J2543; J2930; J7120

== ENCOUNTER 2023-06-11 14:44 | Emergency (ER) | payer OTHER ==
[~2023-06-11] VITALS: Ht 152.4 cm; Wt 70.5 kg
[2023-06-11 14:51] VITALS: TEMP 97.4
[2023-06-11] MEDS ORDERED: PERCOCET 325 MG1 TA2 PO (16:25)
[2023-06-11 16:35] VITALS: BP 123/89; PULSE 88
== END 2023-06-11 16:36 | disposition home or self-care (01) ==
LOC: COL.ER 14:44
DX: S70.02XA Contusion of left hip, initial encounter (principal); S80.02XA Contusion of left knee, initial encounter; M54.16 Radiculopathy, lumbar region; G89.29 Other chronic pain; Z98.890 Other specified postprocedural states; Z96.89 Presence of other specified functional implants; Z79.899 Other long term (current) drug therapy; W01.0XXA Fall on same level from slipping, tripping and stumbling without subsequent striking against object, initial encounter; Y93.K1 Activity, walking an animal
CPT/HCPCS: J2270; J2405